=== PATIENT | male | born 1960 | race Caucasian/White ===

== ENCOUNTER 2023-06-02 16:04 | Emergency (ER) | payer OTHER, SELFPAY ==
[2023-06-02 16:08] VITALS: BP 133/96; PULSE 91; RESP 18; TEMP 36.6; O2SAT 96; BMI 40.9
--- NOTE | 2023-06-02 16:18 | XR_ITS ---
The [address] [address] Patient Name: HUAN DIAZ MRN: [id number] date: 1960 Sex: M Assigned Patient Location: ER Current Patient Location: ER Accession/Order Number: [id number] Exam Date: 06/02/2023 16:25 Report Date: 06/02/2023 17:13 At the request of: SHAILA REDDY Procedure: XR knee LT 3V EXAM: XR knee LT 3V HISTORY: pain COMPARISON: None. TECHNIQUE: 3 views of the left knee were obtained utilizing the portable unit. FINDINGS: There is no evidence of an acute fracture or dislocation. The joint spaces appear relatively intact given patient positioning. No osteochondral injury is identified. There is no evidence of a joint effusion. XR/XR knee LT 3V IMPRESSION: No acute fracture, dislocation or significant degenerative change. There is no evidence of a joint effusion. Electronically authenticated by: JORDI LEO Date: 06/02/2023 17:13
--- NOTE | 2023-06-02 16:19 | ED.LOWEXI1 ---
HPI - Extremity Injury (Lower) General Chief Complaint: Extremity Injury, Lower Stated Complaint: Lower Extremity Pain Time Seen by Provider: 06/02/23 16:10 Source: patient and family Mode of arrival: walk-in Limitations: no limitations History of Present Illness HPI Narrative: 63 year old male presents to the ED for pain to his left knee. The pain is to the superior anterior knee. Denies fever, chills, injury, weakness, N/T. States he was walking yesterday when he developed the pain. He has taken oxycodone today with some improvement. Pain increases with movement. Related Data Previous Rx's Medication Instructions Recorded hydrocodone 5 mg-acetaminophen 325 1 tab PO Q8H PRN pain #12 tabs 06/02/23 mg tablet Allergies Allergy/AdvReac Type Severity Reaction Status Date / Time No Known Drug Allergies Allergy Verified 06/02/23 16:08 Review of Systems ROS Constitutional Denies: fever or chills Cardiovascular Denies: chest pain Respiratory Denies: shortness of breath Musculoskeletal Reports: extremity pain; Denies: back pain Integumentary/Breast Denies: rash, itching or redness Neurological Denies: numbness in extremities or weakness in extremities PFSH PFSH Social History Smoking status: Never smoker Exam Constitutional Vital Signs, click to edit/add: Last Vital Signs Temp 97.8 F 06/02/23 16:08 Pulse 91 H 06/02/23 16:08 Resp 18 06/02/23 16:08 BP 133/96 H 06/02/23 16:08 Pulse Ox 96 06/02/23 16:08 O2 Del Method Room Air 06/02/23 16:08 Common normals: no apparent distress and oriented x3 General appearance: cooperative Eye Common normals: conjunctivae normal and no scleral icterus Neck & C-Spine Common normals: supple Chest Chest: symmetrical chest wall rise Respiratory Common normals: normal respiratory effort Effort & inspection: able to speak in complete sentences and symmetric chest movement Cardio Common normals: regular rate Peripheral pulses: posterior tibial pulses present and dorsalis pedis pulses present Extremity Left lower extremity: knee joint Other: No swelling, erythema, deformity, or discoloration noted to left knee. Tenderness to superior knee area. Full ROM. Course Vital Signs Vital signs: Vital Signs Temperature 97.8 F 06/02/23 16:08 Pulse Rate 91 H 06/02/23 16:08 Respiratory Rate 18 06/02/23 16:08 Blood Pressure 133/96 H 06/02/23 16:08 Pulse Oximetry 96 06/02/23 16:08 Oxygen Delivery Method Room Air 06/02/23 16:08 Temperature 97.8 F 06/02/23 16:08 Pulse Rate 91 H 06/02/23 16:08 Respiratory Rate 18 06/02/23 16:08 Blood Pressure 133/96 H 06/02/23 16:08 Pulse Oximetry 96 06/02/23 16:08 Oxygen Delivery Method Room Air 06/02/23 16:08 MDM - Extremity Injury (Lower) MDM Narrative Medical decision making narrative: X-ray findings were discussed with the patient and his family member. An marilyn wrap was applied to the left knee. The application was checked and was appropriate; the LLE remained NVI. OARRs was reviewed. A prescription was provided for norco. Follow up with an orthopedist for a recheck, further evaluation and treatment. Differential Diagnosis Differential diagnosis: Likely acute internal derangement of knee and other (Knee sprain/strain, fracture, effusion) Medical Records Attestation: I reviewed the patient's medical records. Imaging Data XR knee: Attestation: I have reviewed the pertinent imaging results. Radiologist's impression: ITS Impressions Knee X-Ray 06/02/23 16:18 IMPRESSION: No acute fracture, dislocation or significant degenerative change. There is no evidence of a joint effusion. Electronically authenticated by: JORDI LEO Date: 06/02/2023 17:13 Discharge Plan Discharge Chief Complaint: Extremity Injury, Lower Clinical Impression: Acute knee pain Patient Disposition: Home, Self-Care Time of Disposition Decision: 17:29 Condition: Good Mode of Transportation: Private Vehicle Prescriptions / Home Meds: New hydrocodone-acetaminophen 5-325 mg tablet 1 tab PO Q8H PRN (Reason: pain) Qty: 12 0RF Instructions: Knee Pain (ED) Stand Alone Forms: Portal Instructions Referrals: Bjorn Monsivais MD [Primary Care Provider] - 1 week Edis Valera MD [Physician] - 1 week Discharge Date/Time: 06/02/23 17:45
== END 2023-06-02 17:45 | disposition home or self-care (01) ==
PROVIDERS: Emergency Provider Emergency Medicine; PCP Family Medicine
DX: M25.562 Pain in left knee (principal)
CPT/HCPCS: 73562; 99283

== ENCOUNTER 2024-12-23 19:33 | Emergency (ER) | payer OTHER, SELFPAY ==
--- OUTSIDE RECORDS SUMMARY | 2024-12-23 19:39 | XMS_ITS | Clinical Summary ---
Author Organization [facility] Healthcare Address [address] [place] [address] Care Team Providers Care Client Engagement Manager Name Role Phone Unavailable Primary Care Provider Unavailabl e Social History Tobacco Use Types Packs/Day Years Used Date Smoking Tobacco: Never Assessed Sex and Gender Information Value Date Recorded Sex Assigned at Not on file Legal Sex Male 8:25 PM EDT Gender Identity Not on file Sexual Orientation Not on file Last Filed Vital Signs Vital Sign Reading Time Taken Comments Blood Pressure 146/85 05/10/2018 12:00 PM EST Pulse - - Temperature - - Respiratory Rate - - Oxygen Saturation - - Inhaled Oxygen Concentration - - Weight 138 kg (304 lb) 05/10/2018 12:00 PM EST Height 177.8 cm (5' 10 ) 05/10/2018 12:00 PM EST Body Mass Index 43.62 05/10/2018 12:00 PM EST Plan of Treatment Not on file Insurance [employer]
--- OUTSIDE RECORDS SUMMARY | 2024-12-23 19:40 | XMS_ITS | CCD ---
Author Organization [facility] Care Team Providers Care Consumer Insight Manager Name Role Phone DARIUS, DR CAVAZOS Admitting Unavailable NILL, DR CAVAZOS Attending Unavailable HOY, DR GILL Primary Care Unavailable NILL, DR CAVAZOS Consulting Unavailable CALEB, JUANIS Consulting Unavailable MORGOS, KERRY Consulting Unavailable ANTHONY, IRISH S Consulting Unavailable HOY, DR GILL Admitting Unavailable HOY, DR GILL Attending Unavailable HOY, DR GILL Primary Care Unavailable HOY, DR GILL Consulting Unavailable HOY, DR GILL Admitting Unavailable HOY, DR GILL Attending Unavailable HOY, DR GILL Primary Care Unavailable HOY, DR GILL Consulting Unavailable HOY, DR GILL Primary Care Unavailable MARKER, DR JOHNSTON Admitting Unavailable MARKER, DR JOHNSTON Attending Unavailable MARKER, DR JOHNSTON Consulting Unavailable CAREYPAOLO Consulting Unavailable NILL, DR CAVAZOS Admitting Unavailable NILL, DR CAVAZOS Attending Unavailable HOY, DR GILL Primary Care Unavailable NILL, DR CAVAZOS Consulting Unavailable GLEZ, NAYA Consulting Unavailable NILL, DR CAVAZOS Admitting Unavailable NILL, DR CAVAZOS Attending Unavailable HOY, DR GILL Primary Care Unavailable NILL, DR CAVAZOS Consulting Unavailable Hoy, Jairo Primary Care Physician Macy MONTES DE OCA Attending Unavailable Hoy PROVIDERJairo Referring Unavailabl e NILLMacy Attending Unavailable NILLMacy Attending Unavailable Hoy PROVIDERJairo Referring Unavailabl e NILLMacy Attending Unavailable Hoy PROVIDER, Jairo Referring Unavailabl e Allergies Allergy Classification Reported Allergen(s) Allergy Type Date of Onset Reaction(s) Facility (1 source) No Known Medication Allergies; Translations: [No Known Medication Allergies] Propensity to adverse reactions (disorder) [facility] Repository Medications Current Medications Medication Drug Class(es) Dates Sig (Normalized) Sig (Original) 24 hr desvenlafaxine succinate 100 mg extended release oral tablet (1 source) Serotonin and Norepinephrine Reuptake Inhibitor Start: 12-29-2021 take 1 tablet by mouth once daily Pristiq 100 mg Tab-ER 100 mg = 1 tab(s), Oral, Daily, Refills(s) 0 Start Date: 12/29/21 Status: Ordered hydrOXYzine pamoate 25 mg oral capsule (1 source) Antihistamine Start: 12-29-2021 take 1 capsule by mouth four times daily as needed for anxiety Vistaril 25 mg Cap 25 mg = 1 cap(s), Oral, QID, PRN as needed for anxiety, Refills(s) 0 Start Date: 12/29/21 Status: Ordered lisinopril 10 mg oral tablet (1 source) Angiotensin Converting Enzyme Inhibitor Start: 12-29-2021 take 1 tablet by mouth once daily lisinopril 10 mg Tab 10 mg = 1 tab(s), Oral, Daily, Refills(s) 0 Start Date: 12/29/21 Status: Ordered Problems Problem Classification Problem Date Documented Date Episodic/Chronic Abdominal pain (4 sources) Unspecified abdominal pain; Translations: [Upper abdominal pain, unspecified] Onset: 12-19-2021 Episodic Acquired foot deformities (1 source) Foot-drop 12-29-2021 Episodic Anxiety disorders (2 sources) Anxiety disorder, unspecified; Translations: [Anxiety] Onset: 02-16-2022 12-29-2021 Chronic Biliary tract disease (9 sources) Calculus of gallbladder without cholecystitis without obstruction; Translations: [Calculus of gallbladder with chronic cholecystitis without obstruction] Onset: 12-22-2021 Episodic Diabetes mellitus without complication (2 sources) Type 2 diabetes mellitus without complications; Translations: [Diabetes mellitus] Onset: 02-01-2022 12-29-2021 Chronic Disorders of lipid metabolism (3 sources) Hyperlipidemia, unspecified; Translations: [Hypertriglyceridemi a] Onset: 02-16-2022 12-29-2021 Chronic Essential hypertension (2 sources) Essential (primary) hypertension; Translations: [Hypertensive disorder] Onset: 02-16-2022 12-29-2021 Chronic Mood disorders (2 sources) Major depressive disorder, single episode, unspecified; Translations: [Depressive disorder] Onset: 02-16-2022 12-29-2021 Chronic Other aftercare (1 source) Other mcc (current) drug therapy; Translations: [OTH PRISON CURRENT DRUG THERAPY] Onset: 12-22-2021 Episodic Other nervous system disorders (1 source) Paresthesia 12-29-2021 Episodic Other nutritional; endocrine; and metabolic disorders (1 source) Obesity, unspecified; Translations: [OBESITY UNSPECIFIED] Onset: 02-16-2022 Chronic Other nutritional; endocrine; and metabolic disorders (1 source) Body mass index (BMI) 40.0-44.9, adult; Translations: [BODY MASS INDEX BMI 40.0-44.9 ADULT] Onset: 02-16-2022 Chronic Other nutritional; endocrine; and metabolic disorders (1 source) Body mass index 40+ - severely obese 01-12-2022 Chronic Other screening for suspected conditions (not mental disorders or infectious disease) (1 source) Encounter for screening for malignant neoplasm of prostate; Translations: [ENC SCREEN MALIG NEOPLASM PROSTATE] Onset: 02-09-2022 Episodic Unclassified (1 source) CONTACT W/AND (SUSP) EXPOS COVID-19; Translations: [CONTACT W/AND (SUSP) EXPOS COVID-19] Onset: 02-09-2022 Results Test Name Value Interpretation Reference Range Facility General Surgery Office/Clini c Noteon 02-18-2022 General Surgery Office/Clinic Note Chief Complaint post operative follow up HPI Staff 7 day post operative follow up post lap cholecystectomy. Denies pain, no use of pain medication. Denies bleeding or drainage. Bowels moving well. History of Present Illness 1 week s/p LS cholecystectomy, doing well; denies pain, did not take pain meds, no N/V; normal bms; eating well, no fevers, no drainage from incisions; pathology with chronic cholecystitis and large 3 cm stone. Review of Systems ROS - Provider Constitutional: no fever, no sweats, no weight loss. Eyes: no glasses, no blurred vision, no visual loss. ENMT: no dentures, no hoarseness, no swallowing difficulties, no hearing loss, no ear infection(s), no nose bleeds. Cardiovascular: normal blood pressure, no chest pain, regular heartbeat, no heart murmur. Respiratory: no shortness of breath, no cough, no asthma, no wheezing. Gastrointestinal: no nausea, no vomiting, no diarrhea, no constipation, no blood in stool, no change in bowel habits, no abdominal pain, no hepatitis. Genitourinary: no kidney stones, no urine infection, no dysuria. Musculoskeletal: no pain, no weakness. Skin: no changing moles, no rash, no skin lumps. Neurologic: no seizures, no epilepsy, no headache. Psychiatric: no emotional or psychiatric problem. Heme/Lymph: no bleeding problems, no anemia, no blood clots, no transfusions. Allergy/Immunologic: no swollen lymph nodes/glands, no IV drug abuse. Other: Additional ROS info: Except as noted in the above Review of Systems and in the History of Present Illness, all other systems have been reviewed and are negative or noncontributory. Physical Exam abd: obese, soft, incisions without erythema or drainage; resolving periumbilical ecchymosis. Assessment/Plan 1. Symptomatic cholelithiasis (K80.20: Calculus of gallbladder without cholecystitis without obstruction) doing well; continue no lifting > 10 lbs for 3 weeks; call with problems/questions. Follow-up With When Contact Information DARIUS MATTA, CHIDI Jc Only if needed [address] [place] [address]- Additional Instructions: Problem List/Past Medical History Ongoing Anxiety BMI 40.0-44.9, adult Cholelithiasis Depression Diabetes HTN (hypertension) Hypertriglyceridemia Paresthesia Pure hypercholesterolemia Right foot drop Symptomatic cholelithiasis Historical No qualifying data Procedure/Surgical History Decompression of lumbar spine. Medications lisinopril 10 mg Tab, 10 mg= 1 tab(s), Oral, Daily Pristiq 100 mg Tab-ER, 100 mg= 1 tab(s), Oral, Daily Vistaril 25 mg Cap, 25 mg= 1 cap(s), Oral, QID, PRN Allergies No Known Allergies No Known Medication Allergies Social History Alcohol - Denies Alcohol Use, 01/06/2022 Substance Abuse - Denies Substance Abuse, 01/06/2022 Tobacco Never (less than 100 in lifetime) Tobacco Use:. Never Smokeless Tobacco Use:., 01/06/2022 Family History Diabetes mellitus type 2: Father. Esophageal cancer: Sister. Heart disease: Mother. Hypertension: Mother. Primary malignant neoplasm of colon: Brother. Primary malignant neoplasm of prostate: Father. Immunizations Vaccine Date Status Comments influenza virus vaccine, inactivated - Not Given Patient Refuses Normal [facility] Comment on above: Result Comment: Elec tronically Signed By: DARIUS MATTA, Macy Jeffery\Date and Time Signed: 02/18/22 15:24 EST Pathology Noteon 02-16-2022 Pathology Note [id number]: 127 Normal [facility] Operative Reporton Operative Report [id number]: 127 Normal [facility] Lab Reportson 02-06-2022 Lab Reports [id number]: 127 Normal [facility]on 01-11 SARS-CoV-2 (COVID-19) RNA RONALD+probe Ql (Unsp spec) Not detected Normal NOT DETECTED [facility] Comment on above: Result Comment: This test is not yet approved or cleared by the [place] FDA. When there are no FDA-approved or cleared tests available, and other criteria are met, FDA can make tests available under an emergency access mechanism called an Emergency Use Authorization (EUA). The EUA for this test is supported by the Viper of Health and Human Service's (HHS's) declaration that circumstances exist to justify the emergency use of in vitro diagnostics for the detection and/or diagnosis of the virus that causes COVID-19. This EUA will remain in effect (meaning this test can be used) for the duration of the COVID-19 declaration justifying emergency of IVDs, unless it is terminated or revoked by FDA (after which the test may no longer be used). When diagnostic testing is negative, the possibility of a false negative should be considered in the context of a patient's recent exposures and the presence of clinical signs and symptoms consistent with SARS-CoV-2. Performed By: #### C VDTB #### [facility] [address] [place] [address] Dr. Chinedu Vitale GLYCOHEMOGLOBIN A1Con 2021 ADA RECOMMENDATION SEE BELOW Normal [facility] Comment on above: Result Comment: ADA RECOMMENDED LIMIT 4.0 - 6.0 ADA THERAPEUTIC TARGET < 7.0 ACTION SUGGESTED > 7.0 Performed By: #### A 1C #### [facility] [address] [place] [address] Dr. Chinedu Vitale Glucose [Mass/Vol] 126 mg/dL Normal [facility] Comment on above: Performed By: #### A 1C #### [facility] [address] [address] [address] Chinedu Vitale HbA1c (Bld) [Mass fraction] 6.0 % Normal 4.5-6.2 [facility] Comment on above: Performed By: #### A 1C #### [facility] [address] [place] [address] Dr. Chinedu Vitale Lab Reportson 2022 Lab Reports [id number]: 127 Normal [facility] PROF CHEM 8 (BAS METB)on Anion gap [Moles/Vol] 10.1 mmol/L Normal [facility] Comment on above: Performed By: #### B MP #### [facility] [address] [place] [address] Dr. Chinedu Vitale Calcium [Mass/Vol] 9.1 mg/dL Normal 8.5-10.1 [facility] Comment on above: Performed By: #### B MP #### [facility] [address] [place] [address] Dr. Chinedu Vitale Chloride [Moles/Vol] 104 mmol/L Normal 98-107 [facility] Comment on above: Performed By: #### B MP #### [facility] [address] [place] [address] Dr. Chinedu Vitale CO2 [Moles/Vol] 28.2 mmol/L Normal 21.0-32.0 [facility] Comment on above: Performed By: #### B MP #### [facility] [address] [place] [address] Dr. Chinedu Vitale Creatinine [Mass/Vol] 1.08 mg/dL Normal 0.70-1.30 [facility] Comment on above: Performed By: #### B MP #### [facility] [address] [address] [address] Chinedu Vitale EGFR-AF [place] CITIZ[place] >60 Normal >=60 [facility] Comment on above: Performed By: #### B MP #### [facility] [address] [id number] [address] Chinedu Vitale EGFR-NON AF [place] CITIZ[place] >60 Normal >=60 [facility] Comment on above: Performed By: #### B MP #### [facility] [address] [address] [address] Chinedu Vitale Glucose [Mass/Vol] 105 mg/dL Normal 74-106 [facility] Comment on above: Performed By: #### B MP #### [facility] [address] [address] [address] Chinedu Vitale Potassium [Moles/Vol] 4.3 mmol/L Normal 3.5-5.1 [facility] Comment on above: Performed By: #### B MP #### [facility] [address] [address] [address] Chinedu Vitale Sodium [Moles/Vol] 138 mmol/L Normal 136-145 [facility] Comment on above: Performed By: #### B MP #### [facility] [address] [address] [address] Chinedu Vitale Urea nitrogen [Mass/Vol] 17.0 mg/dL Normal 7.0-18.0 [facility] Comment on above: Performed By: #### B MP #### [facility] [address] [address] [address] Chinedu Vitale Urea nitrogen/Creatinine [Mass ratio] 15.7 mg/mg Normal [facility] Comment on above: Performed By: #### B MP #### [facility] [address] [address] [address] Chinedu Vitale Consent for Procedure/Surger yon 01-07-2022 Consent for Procedure/Surgery [id number]: 127 Normal [facility] Ambulatory Visit Summaryon 0 01-06-2022 Ambulatory Visit Summary HUAN DIAZ :1960 Visit Date:01/06/2022 Ambulatory Visit Instructions Your Care Team Attending Physician - DARIUS MATTA, Macy Murguia Primary Care Physician - Jairo Geronimo MD This Is Your Medications List Contact prescribing physician if questions or concerns desvenlafaxine (Pristiq 100 mg Tab-ER) hydrOXYzine (Vistaril 25 mg Cap) lisinopril (lisinopril 10 mg Tab) Procedures Performed Decompression of lumbar spine. Discharge Vitals Heart Rate (Peripheral) 80 Respiratory Rate 16 Blood Pressure 130/88 Height 167.64 cm Height 66 in Weight 125 kg Weight 275 lb BMI 44.48 Medications What How Much When Instructions Unchanged desvenlafaxine (Pristiq 100 mg Tab-ER) 1 Tablets By Mouth Every day Contact prescribing physician if questions or concerns Unchanged hydrOXYzine (Vistaril 25 mg Cap) 1 Capsules By Mouth 4 times a day as needed for as needed for anxiety Contact prescribing physician if questions or concerns Unchanged lisinopril (lisinopril 10 mg Tab) 1 Tablets By Mouth Every day Contact prescribing physician if questions or concerns Medications and Immunizations Administered Not Given influenza virus vaccine, inactivated, Patient Refuses Allergies No Known Allergies No Known Medication Allergies Problems Ongoing - Any problem that you are currently receiving treatment for. Anxiety Cholelithiasis Depression Diabetes HTN (hypertension) Hypertriglyceridemia Paresthesia Pure hypercholesterolemia Right foot drop Normal [facility] RAD - CT Reporton 12-25-2021 RAD - CT Report [id number]: 127 Normal [facility] ED Note-Physicianon 12-24-19 22 ED Note-Physician [id number]: 127 Normal [facility] Physician Referralon 022 Physician Referral [id number]: 127 Normal [facility] CBC AUTO DIFFon 12-19-2021 BASO # 0.1 103/ul Normal 0.0-0.1 [facility] Comment on above: Performed By: #### C BC ####[facility] [address] [id number]. Chinedu Vitale Basophils/100 WBC (Bld) 0.5 % Normal 0.2-2.0 [facility] Comment on above: Performed By: #### C BC ####[facility] [address] [id number]. Chinedu Vitale EO # 0.5 103/ul Normal 0.0-0.7 [facility] Comment on above: Performed By: #### C BC ####[facility] [address] [place], [place] [id number]. Chinedu Vitale Eosinophils/100 WBC (Bld) 4.1 % Normal 0.9-7.0 [facility] Comment on above: Performed By: #### C BC ####[facility] [address] [place], [place] [address]Dr. Chinedu Vitale Erythrocyte distribution width (RBC) [Ratio] 14.4 % Normal 11.0-15.0 [facility] Comment on above: Performed By: #### C BC ####[facility] [address] [place], [place] [address]Dr. Chinedu Vitale Hematocrit (Bld) [Volume fraction] 46.9 % Normal 42.0-54.0 [facility] Comment on above: Performed By: #### C BC ####[facility] [address] [place], [place] [id number]. Chinedu Vitale Hemoglobin (Bld) [Mass/Vol] 15.2 g/dL Normal 14.0-18.0 [facility] Comment on above: Performed By: #### C BC ####[facility] [address] [place], [place] [address]Dr. Chinedu Vitale IG # 0.04 10e3/ul Critically high 0.00-0.03 [facility] Comment on above: Performed By: #### C BC ####[facility] [address] [place], [place] [id number]. Chinedu Vitale IG % 0.4 % Normal 0.0-0.5 [facility] Comment on above: Performed By: #### C BC ####[facility] [address] [id number]. Chinedu Vitale LYMPH # 3.5 103/ul Normal 1.2-3.8 [facility] Comment on above: Performed By: #### C BC ####[facility] [address] [id number]. Chinedu Vitale Lymphocytes/100 WBC (Bld) 31.6 % Normal 20.5-60.0 [facility] Comment on above: Performed By: #### C BC ####[facility] [address] [id number]. Chinedu Vitale MANUAL DIFF REQ NO Normal [facility] [place] Comment on above: Performed By: #### C BC ####[facility] [address] [id number]. Chinedu Vitale MCH (RBC) [Entitic mass] 28.6 pg Normal 25.9-34.0 [facility] Comment on above: Performed By: #### C BC ####[facility] [address] [id number]. Antonettemoncho Vitale MCHC (RBC) [Mass/Vol] 32.4 g/dL Normal 29.9-35.2 [facility] Comment on above: Performed By: #### C BC ####[facility] [address] [id number] Vitale MCV (RBC) [Entitic vol] 88.3 fL Normal 80.0-94.0 [facility] Comment on above: Performed By: #### C BC ####[facility] [address] [id number] Vitale MONO # 0.9 103/ul Critically high 0.3-0.8 [facility] [place] Comment on above: Performed By: #### C BC ####[facility] [address] [id number] Vitale Monocytes/100 WBC (Bld) 7.9 % Normal 1.7-12.0 [facility] Comment on above: Performed By: #### C BC ####[facility] [address] [id number]. Chinedu Vitale NEUT # 6.2 103/ul Normal 1.4-6.5 [facility] Comment on above: Performed By: #### C BC ####[facility] [address] [id number]. Chinedu Vitale Neutrophils/100 WBC (Bld) 55.5 % Normal 43.0-75.0 [facility] Comment on above: Performed By: #### C BC ####[facility] [address] [address]Dr. Chinedu Vitale Platelet mean volume (Bld) [Entitic vol] 11.6 fL Normal 9.5-13.5 [facility] Comment on above: Performed By: #### C BC ####[facility] [address] [address]Dr. Chinedu Vitale PLT 241 103/ul Normal 150-450 [facility] Comment on above: Performed By: #### C BC ####[facility] [address] [id number]. Chinedu Vitale RBC 5.31 106/ul Normal 4.70-6.10 [facility] Comment on above: Performed By: #### C BC ####[facility] [address] [id number]. Chinedu Vitale WBC 11.1 103/ul Critically high 4.0-11.0 [facility] Comment on above: Performed By: #### C BC ####[facility] [address] [id number]. Chinedu Vitale CT ABD/PELVIS WO CONon 12-19 CT ABD/PELVIS WO CON CT ABD/PELVIS WO CO N: 12/19/2021 12:14 AM EDT CLINICAL HISTORY: 61 years old Male with UNSPECIFIED ABDOMINAL PAIN. Epigastric pain with nausea. TECHNIQUE: Axial CT images through the abdomen and pelvis are obtained without the intravenous administration of contrast. Coronal and sagittal reformations are also obtained. Dose reduction techniques were achieved by using automated exposure control and/or adjustment of mA and/or kV according to patient size and/or use of iterative reconstruction technique. COMPARISON: None available. FINDINGS: The lung bases are clear with no dependent infiltrate or effusion. Without the use of IV or oral contrast the study is limited by incomplete evaluation of the blood vessels, solid visceral organs and bowel. The liver, spleen, pancreas and bilateral adrenal glands are unremarkable. Large cholelith at the gallbladder neck measures 2.0 cm with the gallbladder is distended at 4.5 x 3.4 cm without surrounding inflammatory change. No intrahepatic or extrahepatic biliary ductal dilatation. The bilateral kidneys are unremarkable with no renal calculi or hydronephrosis. The bilateral ureters demonstrate no gross abnormality or obstruction. The stomach and small bowel are unremarkable. The appendix is less well inflammatory change. The colon is unremarkable. Bilateral fat-containing inguinal hernias are present. The bladder appears unremarkable. There is no evidence of aortic aneurysm. No enlarged lymph nodes are seen. No free air or free fluid is seen. The prostate gland is within normal limits. Remote right lateral rib fracture deformity with callus formation and nonunion. Posterior disc osteophyte L4-L5. No acute compression fracture deformity or suspicious osseous abnormality. IMPRESSION: Large cholelith at the gallbladder neck with distended gallbladder without surrounding definitive inflammatory change. Right upper quadrant ultrasound may be of added benefit. Electronically authenticated by: PAOLO PATINO Date: 2021-12-19 01:47 Normal [facility] LIPASEon 12-19-2021 Lipase [Catalytic activity/Vol] 127.0 U/L Normal 73.0-393.0 [facility] Comment on above: Performed By: #### L IPA, CMP, HSTROPN #### [facility] [address] [place], [place] [address] Dr. Chinedu Vitale PROF 14(COMP METB)on 022 Albumin [Mass/Vol] 3.9 g/dL Normal 3.4-5.0 [facility] Comment on above: Performed By: #### L IPA, CMP, HSTROPN #### [facility] [address] [place], [place] [address] Dr. Chinedu Vitale Albumin/Globulin [Mass ratio] 1.2 {ratio} Normal [facility] Comment on above: Performed By: #### L IPA, CMP, HSTROPN #### [facility] [address] [address] [address] Chinedu Vitale ALP [Catalytic activity/Vol] 89 U/L Normal 46-116 [facility] Comment on above: Performed By: #### L IPA, CMP, HSTROPN #### [facility] [address] [address] [address] Chinedu Vitale ALT [Catalytic activity/Vol] 21 U/L Normal 16-63 [facility] Comment on above: Performed By: #### L IPA, CMP, HSTROPN #### [facility] [address] [address] [address] Chinedu Vitale Anion gap [Moles/Vol] 9.7 mmol/L Normal [facility] Comment on above: Performed By: #### L IPA, CMP, HSTROPN #### [facility] [address] [place] [address] Dr. Chinedu Vitale AST [Catalytic activity/Vol] 13 U/L Critically low 15-37 [facility] Comment on above: Performed By: #### L IPA, CMP, HSTROPN #### [facility] [address] [place] [address] Dr. Chinedu Vitale Bilirubin [Mass/Vol] 0.3 mg/dL Normal 0.2-1.0 [facility] Comment on above: Performed By: #### L IPA, CMP, HSTROPN #### [facility] [address] [address] [address] Chinedu Vitale Calcium [Mass/Vol] 8.8 mg/dL Normal 8.5-10.1 [facility] Comment on above: Performed By: #### L IPA, CMP, HSTROPN #### [facility] [address] [place] [address] Dr. Chinedu Vitale Chloride [Moles/Vol] 104 mmol/L Normal 98-107 [facility] Comment on above: Performed By: #### L IPA, CMP, HSTROPN #### [facility] [address] [place], [place] [id number] Dr. Chinedu Vitale CO2 [Moles/Vol] 26.4 mmol/L Normal 21.0-32.0 [facility] Comment on above: Performed By: #### L IPA, CMP, HSTROPN #### [facility] [address] [address] [address] Chinedu Vitale Creatinine [Mass/Vol] 1.12 mg/dL Normal 0.70-1.30 [facility] Comment on above: Performed By: #### L IPA, CMP, HSTROPN #### [facility] [address] [address] [address] Chinedu Vitale EGFR-AF [place] CITIZ[place] >60 Normal >=60 [facility] Comment on above: Performed By: #### L IPA, CMP, HSTROPN #### [facility] [address] [place] [address] Dr. Chinedu Vitale EGFR-NON AF [place] CITIZEN >60 Normal >=60 [facility] Comment on above: Performed By: #### L IPA, CMP, HSTROPN #### [facility] [address] [address] [address] Chinedu Vitale Globulin (S) [Mass/Vol] 3.3 g/dL Normal [facility] Comment on above: Performed By: #### L IPA, CMP, HSTROPN #### [facility] [address] [place] [address] Dr. Chinedu Vitale Glucose [Mass/Vol] 144 mg/dL Critically high 74-106 [facility] Comment on above: Performed By: #### L IPA, CMP, HSTROPN #### [facility] [address] [address] [address] Chinedu Vitale Potassium [Moles/Vol] 4.1 mmol/L Normal 3.5-5.1 [facility] Comment on above: Performed By: #### L IPA, CMP, HSTROPN #### [facility] [address] [place] [address] Dr. Chinedu Vitale Protein [Mass/Vol] 7.2 g/dL Normal 6.4-8.2 [facility] Comment on above: Performed By: #### L IPA, CMP, HSTROPN #### [facility] [address] [address] [address] Chinedu Vitale Sodium [Moles/Vol] 136 mmol/L Normal 136-145 [facility] Comment on above: Performed By: #### L IPA, CMP, HSTROPN #### [facility] [address] [address] [address] Chinedu Vitale Urea nitrogen [Mass/Vol] 19.0 mg/dL Critically high 7.0-18.0 [facility] Comment on above: Performed By: #### L IPA, CMP, HSTROPN #### [facility] [address] [address] [address] Chinedu Vitale Urea nitrogen/Creatinine [Mass ratio] 17.0 mg/mg Normal [facility] Comment on above: Performed By: #### L IPA, CMP, HSTROPN #### [facility] [address] [address] [address] Chinedu Vitale TROPONIN, HIGH SENSITIVITYon 12-19-2021 HSTROP 7.1 pg/mL Normal 4.0-76.1 [facility] Comment on above: Result Comment: CUT- OFF POINTS HAVE BEEN ESTABLISHED BASED ON THE FOURTH UNIVERSAL DEFINITIONS OF MYOCARDIAL INFARCTION. THE UPPER REFERENCE LIMIT (URL) OF TROPONIN, DEFINED THE 99TH PERCENTILE OF cTnI DISTRIBUTION IN A REFERENCE POPULATION, HAS BEEN CONFIRMED THE DECISION THRESHOLD FOR SD DIAGNOSIS. Performed By: #### L IPA, CMP, HSTROPN #### [facility] [address] [address] [address] Chinedu Vitale [facility] CBC AUTO DIFFon 11-27-2021 BASO # 0.1 103/ul Normal 0.0-0.1 [facility] Comment on above: Performed By: #### H FPFCBC ####[facility] [address] [address]Dr. Chinedu Vitale Basophils/100 WBC (Bld) 0.6 % Normal 0.2-2.0 [facility] Comment on above: Performed By: #### H FPFCBC ####[facility] [address] [address]Dr. Chinedu Vitale EO # 0.4 103/ul Normal 0.0-0.7 [facility] Comment on above: Performed By: #### H FPFCBC ####[facility] [address] [place], [place] [address]Dr. Chinedu Vitale Eosinophils/100 WBC (Bld) 3.9 % Normal 0.9-7.0 [facility] Comment on above: Performed By: #### H FPFCBC ####[facility] [address] [place], [place] [address]Dr. Chinedu Vitale Erythrocyte distribution width (RBC) [Ratio] 14.0 % Normal 11.0-15.0 [facility] Comment on above: Performed By: #### H FPFCBC ####[facility] [address] [place], [place] [address]Dr. Chinedu Vitale Hematocrit (Bld) [Volume fraction] 49.6 % Normal 42.0-54.0 [facility] Comment on above: Performed By: #### H FPFCBC ####[facility] [address] [place], [place] [address]Dr. Chinedu Vitale Hemoglobin (Bld) [Mass/Vol] 15.6 g/dL Normal 14.0-18.0 [facility] Comment on above: Performed By: #### H FPFCBC ####[facility] [address] [place], [place] [address]Dr. Chinedu Vitale IG # 0.02 10e3/ul Normal 0.00-0.03 [facility] Comment on above: Performed By: #### H FPFCBC ####[facility] [address] [place], [place] [address]Dr. Chinedu Vitale IG % 0.2 % Normal 0.0-0.5 [facility] Comment on above: Performed By: #### H FPFCBC ####[facility] [address] [place], [place] [address]Dr. Chinedu Vitale LYMPH # 2.8 103/ul Normal 1.2-3.8 [facility] Comment on above: Performed By: #### H FPFCBC ####[facility] [address] [address]Dr. Antonettemoncho Vitale Lymphocytes/100 WBC (Bld) 30.3 % Normal 20.5-60.0 [facility] Comment on above: Performed By: #### H FPFCBC ####[facility] [address] [address]Dr. Chinedu Vitale MCH (RBC) [Entitic mass] 27.8 pg Normal 25.9-34.0 [facility] Comment on above: Performed By: #### H FPFCBC ####[facility] [address] [place], [place] [address]Dr. Chinedu Vitale MCHC (RBC) [Mass/Vol] 31.5 g/dL Normal 29.9-35.2 [facility] Comment on above: Performed By: #### H FPFCBC ####[facility] [address] [place], [place] [address]Dr. Chinedu Vitale MCV (RBC) [Entitic vol] 88.3 fL Normal 80.0-94.0 [facility] Comment on above: Performed By: #### H FPFCBC ####[facility] [address] [place], [place] [address]Dr. Chinedu Vitale MONO # 0.7 103/ul Normal 0.3-0.8 [facility] Comment on above: Performed By: #### H FPFCBC ####[facility] [address] [place], [place] [address]Dr. Chinedu Vitale Monocytes/100 WBC (Bld) 7.2 % Normal 1.7-12.0 [facility] Comment on above: Performed By: #### H FPFCBC ####[facility] [address] [place], [place] [address]DrBarb Vitale NEUT # 5.3 103/ul Normal 1.4-6.5 [facility] Comment on above: Performed By: #### H FPFCBC ####[facility] [address] [place], [place] [address]DrBarb Vitale Neutrophils/100 WBC (Bld) 57.8 % Normal 43.0-75.0 [facility] Comment on above: Performed By: #### H FPFCBC ####[facility] [address] [id number] Chinedu Vitale Platelet mean volume (Bld) [Entitic vol] 11.4 fL Normal 9.5-13.5 [facility] Comment on above: Performed By: #### H FPFCBC ####[facility] [address] [id number]. Chinedu Vitale PLT 261 103/ul Normal 150-450 [facility] Comment on above: Performed By: #### H FPFCBC ####[facility] [address] [address]DrBarb Vitale RBC 5.62 106/ul Normal 4.70-6.10 [facility] Comment on above: Performed By: #### H FPFCBC ####[facility] [address] [address]DrBarb Vitale WBC 9.1 103/ul Normal 4.0-11.0 [facility] Comment on above: Performed By: #### H FPFCBC ####[facility] [address] [address]DrBarb Vitale [employer] (M[employer])on 11-27-2021 Albumin [Mass/Vol] 4.1 g/dL Normal 3.4-5.0 [facility] Comment on above: Performed By: #### H FPFM #### [facility] [address] [address] [address] Chinedu Vitale Albumin/Globulin [Mass ratio] 1.2 {ratio} Normal [facility] Comment on above: Performed By: #### H FPFM #### [facility] [address] [address] [address] Chinedu Vitale ALP [Catalytic activity/Vol] 89 U/L Normal 46-116 [facility] Comment on above: Performed By: #### H FPFM #### [facility] [address] [address] [address] Chinedu Vitale ALT [Catalytic activity/Vol] 22 U/L Normal 16-63 [facility] Comment on above: Performed By: #### H FPFM #### [facility] [address] [address] [address] Chinedu Vitale AST [Catalytic activity/Vol] 15 U/L Normal 15-37 [facility] Comment on above: Performed By: #### H FPFM #### [facility] [address] [address] [address] Chinedu Vitale Bilirubin [Mass/Vol] 0.5 mg/dL Normal 0.2-1.0 [facility] Comment on above: Performed By: #### H FPFM #### [facility] [address] [place] [address] Dr. Chinedu Vitale Calcium [Mass/Vol] 9.1 mg/dL Normal 8.5-10.1 [facility] Comment on above: Performed By: #### H FPFM #### [facility] [address] [place] [address] Dr. Chinedu Vitale Chloride [Moles/Vol] 102 mmol/L Normal 98-107 [facility] Comment on above: Performed By: #### H FPFM #### [facility] [address] [place] [address] Dr. Chinedu Vitale CHOL-HDL RATIO NORM SEE BELOW Normal [facility] Comment on above: Result Comment: 3.3 - 4.4 LOW RISK 4.4 - 7.1 AVERAGE RISK 7.1 - 11.0 MODERATE RISK >11.0 HIGH RISK Performed By: #### H FPFM #### [facility] [address] [place] [address] Dr. Chinedu Vitale Cholesterol [Mass/Vol] 208 mg/dL Critically high <=200 [facility] Comment on above: Performed By: #### H FPFM #### [facility] [address] [place] [address] Dr. Chinedu Vitale Cholesterol in HDL [Mass/Vol] 41 mg/dL Normal 40-60 [facility] Comment on above: Performed By: #### H FPFM #### [facility] [address] [address] [address] Chinedu Vitale Cholesterol in LDL [Mass/Vol] 136.4 mg/dL Normal [facility] Comment on above: Performed By: #### H FPFM #### [facility] [address] [address] [address] Chinedu Vitale Cholesterol.total/Ch olesterol in HDL [Mass ratio] 5.1 {ratio} Normal [facility] Comment on above: Performed By: #### H FPFM #### [facility] [address] [address] [address] Chinedu Vitale CO2 [Moles/Vol] 29.8 mmol/L Normal 21.0-32.0 [facility] Comment on above: Performed By: #### H FPFM #### [facility] [address] [address] [address] Chinedu Vitale Creatinine [Mass/Vol] 1.21 mg/dL Normal 0.70-1.30 [facility] Comment on above: Performed By: #### H FPFM #### [facility] [address] [address] [address] Chinedu Vitale Globulin (S) [Mass/Vol] 3.5 g/dL Normal [facility] Comment on above: Performed By: #### H FPFM #### [facility] [address] [address] [address] Chinedu Vitale Glucose [Mass/Vol] 100 mg/dL Normal 74-106 [facility] Comment on above: Performed By: #### H FPFM #### [facility] [address] [address] [address] Chinedu Vitale HDL NORMAL > or = 60 mg/dl - LO W CARDIOVASCULAR RISK <40 mg/dl - HIGH CARDIOVASCULAR RISK Normal [facility] Comment on above: Performed By: #### H FPFM #### [facility] [address] [address] [address] Chinedu Vitale LDL CALC NORMAL SEE BELOW Normal [facility] Comment on above: Result Comment: <100 mg/dl OPTIMAL 100 - 129 mg/dl NEAR OR ABOVE OPTIMAL 130 - 159 mg/dl BORDERLINE HIGH 160 - 189 mg/dl HIGH >190 mg/dl VERY HIGH Performed By: #### H FPFM #### [facility] [address] [address] [address] Chinedu Vitale Potassium [Moles/Vol] 4.4 mmol/L Normal 3.5-5.1 [facility] Comment on above: Performed By: #### H FPFM #### [facility] [address] [address] [address] Chinedu Vitale Protein [Mass/Vol] 7.6 g/dL Normal 6.4-8.2 [facility] Comment on above: Performed By: #### H FPFM #### [facility] [address] [place] [address] Dr. Chinedu Vitale Sodium [Moles/Vol] 139 mmol/L Normal 136-145 [facility] Comment on above: Performed By: #### H FPFM #### [facility] [address] [place] [address] Dr. Chinedu Vitale Triglyceride [Mass/Vol] 153 mg/dL Critically high <=150 [facility] Comment on above: Performed By: #### H FPFM #### [facility] [address] [place] [address] Dr. Chinedu Vitale TSH 2.694 uIU/mL Normal 0.358-3.740 [facility] Comment on above: Performed By: #### H FPFM #### [facility] [address] [address] [address] Chinedu Vitale Urea nitrogen [Mass/Vol] 20.0 mg/dL Critically high 7.0-18.0 [facility] Comment on above: Performed By: #### H FPFM #### [facility] [address] [place] [address] Dr. Chinedu Vitale Urea nitrogen/Creatinine [Mass ratio] 16.5 mg/mg Normal [facility] Comment on above: Performed By: #### H FPFM #### [facility] [address] [address] [address] Chinedu Vitale VLDL CALC 30.6 mg/dL Normal [facility] Comment on above: Performed By: #### H [facility] #### [facility] [address] [address] [address] Chinedu Vitale Encounters Encounter Date Encounter Type Care Provider Facility Start: 02-18-2022 End: 02-19-2022 ambulatory Macy MONTES DE OCA Facility:[facility] Start: 02-18-2022 End: 02-18-2022 Patient encounter procedure Macy MONTES DE OCA [facility] [place] Start: 02-11-2022 End: 02-12-[address] MACY MONTES DE OCA Facility:[facility] Start: 02-09-2022 Encounter for genera l adult medical examination without abnormal findings DR JAIRO GERONIMO [facility] Start: 02-09-2022 Encounter for preprocedural laboratory examination DR JAIRO GERONIMO [facility] Start: 02-08-2022 Encounter for preprocedural laboratory examination DR MACY MONTES DE OCA [facility] Start: 02-05-2022 End: 02-06-2022 Encounter for general adult medical examination without abnormal findings DR JAIRO GERONIMO Facility:[facility] Start: 02-05-2022 End: 02-06-[address] JAIRO GERONIMO Facility:[facility] Start: 02-05-2022 End: 02-06-2022 Encounter for preprocedural laboratory examination DR MACY MONTES DE OCA Facility:[facility] Start: 01-28-2022 End: [address] MACY MONTES DE OCA Facility:[facility] Start: 01-06-2022 End: 01-07-2022 ambulatory Macy MONTES DE OCA Facility:[facility] Start: 12-22-2021 ambulatory Macy MONTES DE OCA Facility :[facility] Start: 12-19-2021 End: 12-19-[address] JAIRO GERONIMO Facility:[facility] Start: 11-27-2021 End: 11-28-[address] JAIRO GERONIMO Facility:[facility] Procedures Date Procedure Procedure Detail Performing Clinician Start: 02-05-[address] MARY BETH MONTES DE OCA Comment on above: Performed By: #### P [facility] #### [facility] [id number] Chinedu Vitale Start: 11-27-[address] MARY BETH MONTES DE OCA Comment on above: Performed By: #### [facility] #### [facility] [address] [place], [place] [address] Dr. Chinedu Vitale Decompression of [facility] spine Macy MONTES DE OCA Immunizations Immunization Date Immunization Notes Care Provider Fa cility NEGATED: Highlighted row has not occurred!01-06-2022 influenza virus vaccine, unspecified formulation Macy MONTES DE OCA [facility] [place] Payers Date Payer Category Payer Unknown [id number] 2.16.84 [id number] 1960 Unknown [id number] 2.16.84 [id number] 1961 Unknown [id number] 2.16.84 [id number] 1961 Unknown [id number] 2.16.84 [id number] 1961 Unknown [id number] 2.16.84 [id number] 1961 Unknown [id number] 2.16.8 [id number] 1961 Unknown [id number] 2.16.8 [id number] 1961 Unknown [id number] 2.16.8 [id number] 1961 Unknown [id number] 2.16.8 [id number] 1958 Self-pay [id number] 1958 Unknown [id number] Unknown [id number] 2.16.84 [id number] Social History Date Type Detail Facility Start: 01-06-2022 Tobacco smoking status Never s moked tobacco (finding) [facility] [place] Tobacco smoking status Never Gener al [facility] [place] Sex Assigned At Male [facility] Discharge instructions 02-12-2022 Note Date & Type Note Facility 02-12-2022 Hospital Discharg e instructions Follow Up Care 02/12/2022 09:22:18 With:DARIUS MATTA, CHIDI Jc Address: [address] [place] [address] When: only if needed [facility] [place] Clinical Note 02-11-2022 Note Date & Type Note Facility 02-11-2022 Note OPERATIVE NOTE OPERATION DATE: 02/11/2022 PREOPERATIVE DIAGNOSIS: Symptomatic cholelithiasis. POSTOPERATIVE DIAGNOSIS: Symptomatic cholelithiasis with chronic cholecystitis. PROCEDURE: Laparoscopic cholecystectomy. SURGEON: Macy Montes De Oca M.D. ANESTHESIA: General endotracheal. ESTIMATED BLOOD LOSS: Less than 20 mL. INDICATIONS AND CONSENT: Patient is a 62-year-old male with a history of biliary colic type symptoms. He had a severe episode requiring ER evaluation. He was found to have a large, 2 cm stone in the neck of the gallbladder, normal laboratory evaluation. Indications, risks, benefits, alternatives of proceeding with laparoscopic cholecystectomy were explained extensively to the patient, including risks of bleeding, infection, bile duct injury, bowel injury, need for intraoperative cholangiogram, postoperative ERCP, open procedure, blood clot, pulmonary embolus, heart attack, anesthetic complications, need for further surgery. All of his questions were answered. Informed consent was obtained. PROCEDURE: Patient was brought to the operating room, placed in the supine position. General anesthesia was induced. He was prepped and draped in the usual sterile fashion. A supraumbilical incision was made in the midline and carried down through subcutaneous tissue using blunt dissection. The fascia was grasped and incised. Two 0 Vicryl stay sutures placed in either side of the midline fascia. The Muniz trocar was then inserted and secured using the stay sutures. The abdomen was then insufflated with carbon dioxide to a pressure of 15 mm/Hg. The scope was then inserted. The abdomen was visualized. The patient was placed in reverse Trendelenburg position with the right side up. Three 5 mm ports were then placed; one in the subxiphoid area, two in the right subcostal area, all under direct visualization. Patient had some fatty changes to the liver, as well as a large, fatty omentum. The fundus of the gallbladder was grasped with atraumatic grasper, retracted cephalad and to the patient's right. There was minimal mobility of the liver and gallbladder. The infundibulum was then grasped and retracted laterally and inferiorly. Dissection was begun just below the infundibulum, where the cystic duct and cystic artery and the lower portion of the infundibulum were carefully freed up from the liver plate. Critical view safety was obtained with the cystic duct of normal caliber and cystic artery of normal caliber being seen as the only structures entering into the gallbladder. The duct was then clipped with the Hem-O-Juanjo clip proximally and regular clip proximally and then one distally towards the gallbladder. This was then divided. The cystic artery, once again, was noted to be of normal caliber. It was clipped with Hem-O-Juanjo clips; two proximally and one distally towards the gallbladder and then divided. The gallbladder was then taken down from the liver bed using electrocautery. Small vessels were controlled with regular clips. There were some chronic inflammatory changes in the liver bed. Once the gallbladder was completely removed, it was noted to be partially intrahepatic in the upper portion. It was brought out through the umbilical port site in an Endocatch bag. The fascia and the skin had to be enlarged in order to accommodate the large stone. Once this was removed, the upper abdomen was then copiously irrigated with saline until clear. The liver bed was inspected. There was minimal oozing. No evidence of bile leak. All port sites were examined upon withdrawal of the ports and there was noted to be good hemostasis. The umbilical port site fascia was then closed with 0 Vicryl figure of eight suture. All port sites infiltrated with 0.5% Marcaine. The skin was then closed with interrupted 4-0 subcuticular Monocryl sutures and skin glue. Sterile pressure dressings were applied. Sponge and needle counts were correct x2 per nursing personnel. Patient tolerated procedure well, was extubated and sent to recovery room in good condition. CC: Jairo Geronimo M.D. [facility] Clinical Note 01-12-2022 Note Date & Type Note Facility 01-12-2022 Note Chief Complaint consultation for cholelithiasis HPI Staff 61 year old male presents on consultation from Dr. Geronimo for cholelithiasis. Presented to [place] ED 12/18 with epigastric pain and nausea. Pain radiated to sternum. Denies vomiting, heartburn, indigestion, belching or bloating. Denies bowel changes. He never experienced this before and has not had further pain since ED evaluation. CT ABD/pelvis with cholelithiasis. History of Present Illness 61 yo htn, hypercholesterolemia, anxiety, referred for abd pain/cholelithiasis; patient in ED 12/18/21 with upper abd pain and nausea, severe pain radiating around upper abd and into chest; no emesis; lasted several hours; occurred after a fatty meal; work up revealed 2 cm stone in neck of gallbladder, no inflammation; normal lfts; no h/o previous episodes; no pain since ED visit; no h/o jaundice or acholic stools; no previous abdominal operations; no asa or NSAID use; no tobacco use; fmhx of colon cancer in patient's brother, esophageal cancer in patient's sister; no fmhx of IBD. Review of Systems PHQ Score Initial Depression Screen Score: 0 ROS - Provider Constitutional: no fever, no sweats, no weight loss. Eyes: no glasses, no blurred vision, no visual loss. ENMT: no dentures, no hoarseness, no swallowing difficulties, no hearing loss, no ear infection(s), no nose bleeds. Cardiovascular: normal blood pressure, no chest pain, regular heartbeat, no heart murmur. Respiratory: no shortness of breath, no cough, no asthma, no wheezing. Gastrointestinal: no nausea, no vomiting, no diarrhea, no constipation, no blood in stool, no change in bowel habits, no abdominal pain, no hepatitis. Genitourinary: no kidney stones, no urine infection, no dysuria. Musculoskeletal: no pain, no weakness. Skin: no changing moles, no rash, no skin lumps. Neurologic: no seizures, no epilepsy, no headache. Psychiatric: no emotional or psychiatric problem. Heme/Lymph: no bleeding problems, no anemia, no blood clots, no transfusions. Allergy/Immunologic: no swollen lymph nodes/glands, no IV drug abuse. Other: Additional ROS info: Except as noted in the above Review of Systems and in the History of Present Illness, all other systems have been reviewed and are negative or noncontributory. Physical Exam Vitals & Measurements HR: 80(Peripheral) RR: 16 BP: 130/88 HT: 66 in HT: 167.64 cm WT: 125 kg WT: 275 lb BMI: 44.48 HEENT: normal conjunctiva, sclera clear, no scleral icterus, EOM intact, PERRLA, oral mucosa moist without lesions. Neck: trachea midline, no mass, symmetric, no thyromegaly or nodules, no adenopathy Respiratory: lungs CTA, respirations non labored. Cardiovascular: regular rate and rhythm, no murmur, no pedal edema or varicosities. Gastrointestinal: obese, soft, non distended, no tenderness, no masses, no palpable hernias, diastasis recti no, no hepatosplenomegaly; normal bs Lymphatic: no cervical adenopathy, Musculoskeletal: normal gait, digits and nails without infection, nodes, cyanosis, clubbing. Skin: no rashes, no lesions, no ulcers, no subcutaneous nodules, induration. Psychiatric/Neuro: oriented to time, place, person, judgement normal, affect appropriate for age, insight intact, no focal deficits. Tests: labs reviewed, x-rays reviewed, review of old records completed, Discussed surgical options, risks, and possible complications with patient. Assessment/Plan 1. Symptomatic cholelithiasis (K80.20: Calculus of gallbladder without cholecystitis without obstruction) plan laparoscopic cholecystectomy with possible intraoperative cholangiogram; informed consent obtained. 2. BMI 40.0-44.9, adult (Z68.41: Body mass index [BMI] 40.0-44.9, adult) recommend low fat diet and exercise. Follow-up No qualifying data available Problem List/Past Medical History Ongoing Anxiety BMI 40.0-44.9, adult Cholelithiasis Depression Diabetes HTN (hypertension) Hypertriglyceridemia Paresthesia Pure hypercholesterolemia Right foot drop Symptomatic cholelithiasis Historical No qualifying data Procedure/Surgical History Decompression of lumbar spine. Medications lisinopril 10 mg Tab, 10 mg= 1 tab(s), Oral, Daily Pristiq 100 mg Tab-ER, 100 mg= 1 tab(s), Oral, Daily Vistaril 25 mg Cap, 25 mg= 1 cap(s), Oral, QID, PRN Allergies No Known Allergies No Known Medication Allergies Social History Alcohol - Denies Alcohol Use, 01/06/2022 Substance Abuse - Denies Substance Abuse, 01/06/2022 Tobacco Never (less than 100 in lifetime) Tobacco Use:. Never Smokeless Tobacco Use:., 01/06/2022 Family History Diabetes mellitus type 2: Father. Esophageal cancer: Sister. Heart disease: Mother. Hypertension: Mother. Primary malignant neoplasm of colon: Brother. Primary malignant neoplasm of prostate: Father. Immunizations Vaccine Date Status Comments influenza virus vaccine, inactivated - Not Given Patient Refuses [facility] Comment on above: Result Comment: Elec tronically Signed By: DARIUS MATTA, Macy Jeffery\Date and Time Signed: 01/12/22 17:03 EDT Evaluation + Plan note Note Date & Type Note Facility Evaluation + Plan note No data available for this section General Surgery [place] Progress note Note Date & Type Note Facility Progress note No data available for this section General Surgery [place] Summary Purpose Family History No Family History Records FoundNo Family History Records Found Advance Directives No Advanced Directives Records FoundNo Advanced Directives Records Found Additional Source Comments (unrecognized sect ion and content) No Status Records FoundNo Status Records Found INFORMATION SOURCE (unrecogn ized section and content) DATE CREATED AUTHOR 02/17/2022 [facility] DATE CREATED AUTHOR AUTHOR'S ORGANIZ ATION 02/23/2022 [facility] Patient Care team informatio n (unrecognized section and content) Personnel Name: Jairo Geronimo MD Address: Address: [address] [place] [address] FOR RECORDS PERTAINING TO PATIENTS WHO ARE OR HAVE BEEN ENROLLED IN A CHEMICAL DEPENDENCY/SUBSTANCEABUSE PROGRAM, SOME INFORMATION MAY BE OMITTED. This clinical summary was aggregated from multiple sources. Caution should be exercised in using it in the provision of clinical care. This summary normalizes information from multiple sources, and as a consequence, information in this document may materially change the coding, format and clinical context of patient data. In addition, data may be omitted in some cases. CLINICAL DECISIONS SHOULD BE BASED ON THE PRIMARY CLINICAL RECORDS. [employer] [facility]. provides no warranty or guarantee of the accuracy or completeness of information in this document.
[2024-12-23 19:41] VITALS: BP 130/71; PULSE 102; TEMP 36.7; O2SAT 97; BMI 41.8
--- NOTE | 2024-12-23 21:54 | ED_ITS ---
HPI HPI - General Adult General Chief complaint: Recheck/Abnormal Lab/Rx Stated complaint: POSS HIGH SUGAR Time Seen by Provider: 12/23/24 20:42 Source: patient Mode of arrival: walk-in History of Present Illness HPI narrative: past history of HTN. 2 week history of increased thirst and polyuria. Mild nausea yesterday. No abdominal pain. Family member checked his BS and it was over 500 and brought him in. no dysuria Related Data Previous Rx's ?Medication ?Instructions ?Recorded hydrocodone 5 mg-acetaminophen 325 1 tab PO Q8H PRN pa in #12 tabs 06/02/23 mg tablet Allergies Allergy/AdvReac Type Severity Reaction Status Date / Time No Known Drug Allergies Allergy Verified 06/02/23 16:08 Opioid HPI Opioid Management Most Recent Opioid Data: Last Pain Scale 5 06/02/23, 16:14 Review of Systems ROS Status of ROS 10 or more systems reviewed and unremark able except as noted in history and below PFSH PFSH Social History Smoking status: Never smoker Little interest or pleasure in doing things: not at all Feeling down, depressed, or hopeless: not at all Exam Constitutional Vital Signs, click to edit/add: Last Vital Signs Temp 98.1 F 12/23/24 19:41 Pulse 102 H 12/23/24 19:41 Resp 16 12/23/24 19:41 BP 130/71 12/23/24 19:41 Pulse Ox 97 12/23/24 19:41 O2 Del Method Room Air 12/23/24 19:41 Common normals: no apparent distress, oriented x3, no limitations, alert and well nourished [facility] Common normals: normocephalic and head/scalp atraumatic Eye Common normals: EOMs intact bilaterally and conjunctivae normal Respiratory Common normals: normal respiratory effort, no retractions, no use of accessory muscles and clear to auscultation bilaterally Cardio Common normals: regular rate, regular rhythm, S1 normal heart sound and S2 normal heart sound GI Common normals: Normal to inspection, nondistended, normoactive bowel sounds present, soft to palpation and non-tender Extremity Common normals: normal to inspection and full ROM Neuro Common normals: oriented x3, CN's II-XII intact bilaterally, moves all extremities and no focal motor deficits Psych Appearance: grossly normal Course Vital Signs Vital signs: Vital Signs Temperature 98.1 F 12/23/24 19:41 Pulse Rate 102 H 12/23/24 19:41 Respiratory Rate 16 12/23/24 19:41 Blood Pressure 130/71 12/23/24 19:41 Pulse Oximetry 97 12/23/24 19:41 Oxygen Delivery Method Room Air 12/23/24 19:41 Temperature 98.1 F 12/23/24 19:41 Pulse Rate 102 H 12/23/24 19:41 Respiratory Rate 16 12/23/24 19:41 Blood Pressure 130/71 12/23/24 19:41 Pulse Oximetry 97 12/23/24 19:41 Oxygen Delivery Method Room Air 12/23/24 19:41 Medical Decision Making MDM Narrative Medical decision making narrative: polyuria and polydipsia for past 2 weeks. Arun family checked his blood sugar and it was over 500. Patient asymptomatic. RBS here 508. Patient given 18U humalog and BS decreased 319. He is not in DKA. labs reveal elevated LFTs likely from fatty liver. Patient discharged with a sliding scale to follow up for the next 1-2 days and then to follow up with his PCP to manage his BS Lab Data Labs: Lab Results 12/23/24 12/23/24 12/23/24 Range/Units 19:46 20:39 20:44 WBC 13.4 H (4.0-11.0) 10^3/uL RBC 5.27 (4.70-6.10) 10^6/uL Hgb 14.9 (14.0-18.0) g/dL Hct 44.3 (42.0-54.0) % MCV 84.1 (80.0-94.0) fL MCH 28.3 (25.9-34.0) pg MCHC 33.6 (29.9-35.2) g/dL RDW 13.5 (11.0-15.0) % Plt Count 243 (150-450) 10^3/uL MPV 13.0 (9.5-13.5) fL Neut % (Auto) 65.9 (43.0-75.0) % Lymph % (Auto) 25.8 (20.5-60.0) % [place] % (Auto) 5.4 (1.7-12.0) % Eos % (Auto) 2.0 (0.9-7.0) % Baso % (Auto) 0.4 (0.2-2.0) % Neut # (Auto) 8.8 H (1.4-6.5) 10^3/uL Lymph # (Auto) 3.5 (1.2-3.8) 10^3/uL [place] # (Auto) 0.7 (0.3-0.8) 10^3/uL Eos # (Auto) 0.3 (0.0-0.7) 10^3/uL Baso # (Auto) 0.1 (0.0-0.1) 10^3/uL Abs Immat Gran (auto) 0.07 H (0.00-0.03) 10^3/uL Imm/Tot Granulo (auto) 0.5 (0.0-0.5) % Sodium 132 L (136-145) mmol/L Potassium 4.7 (3.5-5.1) mmol/L Chloride 97 L (98-107) mmol/L Carbon Dioxide 22.6 (21.0-32.0) mmol/L Anion Gap 17.1 BUN 28.0 H (7.0-18.0) mg/dL Creatinine 1.66 H (0.70-1.30) mg/dL Est GFR ( Amer) 51 L (>=60 mL/min/1.73m^2) Est GFR (Non-Af Amer) 42 L (>=60 mL/min/1.73m^2) BUN/Creatinine Ratio 16.9 Glucose 508 H* (74-106) mg/dL Lactate 1.8 (0.4-2.0) mmol/L Calcium 9.1 (8.5-10.1) mg/dL Total Bilirubin 0.4 (0.2-1.0) mg/dL AST 56 H (15-37) U/L ALT 180 H (16-63) U/L Alkaline Phosphatase 149 H (46-116) U/L Total Protein 7.4 (6.4-8.2) g/dL Albumin 3.4 (3.4-5.0) g/dL Globulin 4.0 g/dL Albumin/Globulin Ratio 0.9 Urine Color Lt. yellow (YELLOW) Urine Clarity Clear (CLEAR) Urine pH 5.5 (5.0-9.0) Ur Specific [place] 1.010 (1.005-1.025) Urine Protein Negative (NEG/TRACE) mg/dL Urine Glucose (UA) >=1000 A (NEGATIVE) mg/dL Urine Ketones Trace A (NEGATIVE) mg/dL Urine Occult Blood Negative (NEGATIVE) Urine Nitrite Negative (NEGATIVE) Urine Bilirubin Negative (NEGATIVE) Urine Urobilinogen 0.2 (0.2-1.0) EU/dL Ur Leukocyte Esterase Negative (NEGATIVE) Urine RBC 0-2 (0-2) #/HPF Urine WBC 2-5 A (NONE SEEN) #/HPF Ur Squamous Epith Cells None seen (NONE/RARE) #/LPF Urine Crystals None seen (None Seen) #/HPF Urine Bacteria None seen (NONE SEEN) #/HPF Urine Casts None seen (NONE SEEN) #/LPF Urine Mucus None seen (NONE SEEN) Ur Culture Indicated? No Acetone, Qual Negative (NEGATIVE) POC Glucose 510 H* (74-106) mg/dL 12/23/24 Range/Units 23:13 WBC (4.0-11.0) 10^3/uL RBC (4.70-6.10) 10^6/uL Hgb (14.0-18.0) g/dL Hct (42.0-54.0) % MCV (80.0-94.0) fL MCH (25.9-34.0) pg MCHC (29.9-35.2) g/dL RDW (11.0-15.0) % Plt Count (150-450) 10^3/uL MPV (9.5-13.5) fL Neut % (Auto) (43.0-75.0) % Lymph % (Auto) (20.5-60.0) % [place] % (Auto) (1.7-12.0) % Eos % (Auto) (0.9-7.0) % Baso % (Auto) (0.2-2.0) % Neut # (Auto) (1.4-6.5) 10^3/uL Lymph # (Auto) (1.2-3.8) 10^3/uL [place] # (Auto) (0.3-0.8) 10^3/uL Eos # (Auto) (0.0-0.7) 10^3/uL Baso # (Auto) (0.0-0.1) 10^3/uL Abs Immat Gran (auto) (0.00-0.03) 10^3/uL Imm/Tot Granulo (auto) (0.0-0.5) % Sodium (136-145) mmol/L Potassium (3.5-5.1) mmol/L Chloride (98-107) mmol/L Carbon Dioxide (21.0-32.0) mmol/L Anion Gap BUN (7.0-18.0) mg/dL Creatinine (0.70-1.30) mg/dL Est GFR ( Amer) (>=60 mL/min/1.73m^2) Est GFR (Non-Af Amer) (>=60 mL/min/1.73m^2) BUN/Creatinine Ratio Glucose (74-106) mg/dL Lactate (0.4-2.0) mmol/L Calcium (8.5-10.1) mg/dL Total Bilirubin (0.2-1.0) mg/dL AST (15-37) U/L ALT (16-63) U/L Alkaline Phosphatase (46-116) U/L Total Protein (6.4-8.2) g/dL Albumin (3.4-5.0) g/dL Globulin g/dL Albumin/Globulin Ratio Urine Color (YELLOW) Urine Clarity (CLEAR) Urine pH (5.0-9.0) Ur Specific [place] (1.005-1.025) Urine Protein (NEG/TRACE) mg/dL Urine Glucose (UA) (NEGATIVE) mg/dL Urine Ketones (NEGATIVE) mg/dL Urine Occult Blood (NEGATIVE) Urine Nitrite (NEGATIVE) Urine Bilirubin (NEGATIVE) Urine Urobilinogen (0.2-1.0) EU/dL Ur Leukocyte Esterase (NEGATIVE) Urine RBC (0-2) #/HPF Urine WBC (NONE SEEN) #/HPF Ur Squamous Epith Cells (NONE/RARE) #/LPF Urine Crystals (None Seen) #/HPF Urine Bacteria (NONE SEEN) #/HPF Urine Casts (NONE SEEN) #/LPF Urine Mucus (NONE SEEN) Ur Culture Indicated? Acetone, Qual (NEGATIVE) POC Glucose 359 H (74-106) mg/dL Discharge Plan Discharge Chief Complaint: Recheck/Abnormal Lab/Rx Clinical Impression: Acute hyperglycemia Patient Disposition: Home, Self-Care Prescriptions / Home Meds: No Action hydrocodone-acetaminophen 5-325 mg tablet 1 tab PO Q8H PRN (Reason: pain) Qty: 12 0RF Print Language: Chinese Instructions: Diabetic Hyperglycemia (ED) Additional Instructions: follow up with Dr Monsivais wednesday Referrals: Bjorn Monsivais MD [Primary Care Provider, Family Practice] - 1 week
[2024-12-23 21:58] LABS: Hematocrit 44.3 % (42.0-54.0); Hemoglobin 14.9 g/dL (14.0-18.0); Immature Granulocytes Abs Auto 0.07 10^3/uL (0.00-0.03); Immature Granulocytes Pct Auto 0.5 % (0.0-0.5); Lymphocytes Absolute Auto 3.5 10^3/uL (1.2-3.8); Mean Corpuscular HGB Conc 33.6 g/dL (29.9-35.2); Mean Corpuscular Hemoglobin 28.3 pg (25.9-34.0); Mean Corpuscular Volume 84.1 fL (80.0-94.0); Platelet Count 243 10^3/uL (150-450); Red Blood Count 5.27 10^6/uL (4.70-6.10); White Blood Count 13.4 10^3/uL (4.0-11.0)
[2024-12-23 22:03] LABS: Glucose Urine UA >=1000 mg/dL (NEGATIVE)
[2024-12-23 22:17] LABS: Lactate/Lactic Acid 1.8 mmol/L (0.4-2.0)
[2024-12-23 22:19] LABS: Cast Seen? NONE SEEN #/LPF (NONE SEEN); Crystals Seen? None Seen #/HPF (None Seen); Urine Culture Indicated NO
[2024-12-23] MEDS: 0.9 % SODIUM CHLORIDE 1,000 ML 999 ML IV (22:21)
[2024-12-23 22:25] LABS: Alanine Aminotransferase 180 U/L (16-63); Albumin Globulin Ratio 0.9; Albumin Level 3.4 g/dL (3.4-5.0); Alkaline Phosphatase 149 U/L (46-116); Anion Gap 17.1; Aspartate Amino Transferase 56 U/L (15-37); Blood Urea Nitrogen 28.0 mg/dL (7.0-18.0); Calcium 9.1 mg/dL (8.5-10.1); Carbon Dioxide 22.6 mmol/L (21.0-32.0); Chloride 97 mmol/L (98-107); Estimated GFR (African America 51 (>=60 mL/min/1.73m^2); Estimated GFR (Non-African Ame 42 (>=60 mL/min/1.73m^2); Globulin 4.0 g/dL; Potassium 4.7 mmol/L (3.5-5.1); Sodium 132 mmol/L (136-145); Total Protein 7.4 g/dL (6.4-8.2)
[2024-12-23] MEDS: INSULIN ASPART 300 UNIT/3 ML PEN 18 UNIT SUBQ (22:35)
[2024-12-23 22:52] LABS: Glucose 508 mg/dL (74-106)
[2024-12-23 23:14] VITALS: BP 140/72; PULSE 84; O2SAT 98
== END 2024-12-23 23:55 | disposition home or self-care (01) ==
PROVIDERS: Emergency Provider Internal Medicine; PCP Family Medicine
DX: R73.9 Hyperglycemia, unspecified (principal); I10 Essential (primary) hypertension
CPT/HCPCS: 36415; 80053; 81001; 82009; 83605; 85025; 99285

== ENCOUNTER 2024-12-26 07:42 | Outpatient (OUT) | payer OTHER, SELFPAY ==
--- OUTSIDE RECORDS SUMMARY | 2024-12-25 04:45 | XMS_ITS ---
Author Organization The [facility] in [place] Address [address] [place] [address] Care Team Providers Care Social Media Analyst Name Role Phone Constantin Monsivais Primary Care Provider [phone] Allergies No Known Allergies REASON FOR VISIT Presents to office alone for c/o elevated blood sugars. Ended up over the weekend for blood glucose>600, ER started him on insulin aspart Medications Medication SIG (Take, Route, Frequency, Duration) Notes Start Date End Date Status Glimepiride 2 MG 1 tablet with breakf ast or the first main meal of the day Orally Once a day; Duration: 30 days 12/25/2024 Active metFORMIN HCl 500 MG 1 tablet with a db l Orally bid; Duration: 30 days 12/25/2024 Active Lisinopril 10 mg Take 1 tablet orally daily; Duration: 14 days Active Desvenlafaxine Succinate ER 100 MG 1 tablet Orally Once a day; Duration: 90 days Active Social History Tobacco Use: Social History Observation Description Date Details (start date - stop date) Never Smoker NA - NA Tobacco Use/Smoking Question Answer Notes Patient is a nonsmoker AUDIT-C (Standard) Question Answer Notes Did you have a drink containing alcohol in the p ast year? No Points 0 Interpretation Negative Vital Signs Weight 302.8 lbs 12/25/2024 Height 70 in 12/25/2024 Blood pressure systolic 154 mm Hg 12/26/19 25 Blood pressure diastolic 92 mm Hg 025 BMI 43.44 kg/m2 12/25/2024 Encounters Encounter Location Date Provider Diagnosis [facility] [address] [place] [address] 12/25/2024 Constantin Monsivais Hypertension I10 ; Diabetes E11.9 and Well adult Z00.00 Assessments Encounter Date Diagnosis (ICD Code) Assessment Notes Treatment Notes Treatment Clinical Notes Section Notes 12/25/2024 Hypertension (ICD-10 - I10) 12/25/2024 Diabetes (ICD-10 - E11.9) 12/25/2024 Well adult (ICD-10 - Z00.00) Plan Of Treatment Medication Medication Name Sig Start Date Stop Date Notes Glimepiride 2 MG 1 tablet with breakf ast or the first main meal of the day Orally Once a day; Duration: 30 days 12/25/2024 metFORMIN HCl 500 MG 1 tablet with a db l Orally bid; Duration: 30 days 12/25/2024 Pending Test Test Name Order Date HEMOGLOBIN A1C (GLYCO) 12/25/2024 LIPID PANEL (CHOL/TRIG/HDL/LDL) 12/26/19 25 URIC ACID 12/25/2024 STOOL OCCULT BLOOD 12/25/2024 THYROID PANEL (T4/TSH/FREE T3) PSA, SCREENING 12/25/2024 CMP (COMP MET JIMENEZ) w/eGFR CKD-EPI 2024 CBC WITH DIFF 12/25/2024 Progress Notes * Jil WALKERDOB:1960 (64 yo M)Acc No.[id number]:12/25/2024 UNLOCKED PROGRESS NOTE Progress Note Patient: Jil ROLLINS Provider: Zafar Monsivais ([facility])MD :1960 A ge:64 Y S ex:Male Date:12/25/2024 Address:[address] [place], [place] [id number] Check In:08:25 AM ESTCheck O ut:09:10 AM EST Subjective: * Chief Complaints: * 1 . Presents to office alone for c/o elevated blood sugars. Ended up over the weekend for blood glucose >600. 2. ER started him on insulin aspart. * HPI: G eneral: DIet - new onset - DM Not on meds thngks understand diet. D epression Screening: PHQ-2 (2015 Edition) L ittle interest or pleasure in doing things??Several days F eeling down, depressed, or hopeless? N ot at all T otal Score 1 * ROS: E ENT: hearing changes d enies. v isual changes d enies.?non-healing mouth sores d enies. s wollen glands or neck lumps d enies. h oarseness d enies. s ore throat d enies. d ifficulty swallowing d enies. n ose bleeds d enies. n lexi congestion d enies. e ar ache d enies. e ar discharge?denies. r inging in ears d enies. l ight sensitivity d enies. e ye pain d enies. b lurring d enies. e ye irritation d enies. d ouble vision d enies.?vision loss d enies. G eneral/Constitutional: Sweats: D enies. F atigue d enies. S leep problems d enies. A norexia d enies. M alaise d enies. W eight loss d enies.?Fatigue or Weakness d enies. F ever or Chills d enies. C ardiovascular: Shortness of Breath w/lying flat d enies. L ightheadedness/dizziness d enies. C hest tightness/ heavy pressure d enies. S welling of legs, ankles, or feet d enies. W aking up with shortness of breath d enies. C hest pain denies. P alpitations d enies. W eight gain d enies. R espiratory: Chronic or frequent cough d enies. C oughing up blood?denies. D ifficulty breathing d enies. P roductive cough d enies. S noring?denies. S hortness of breath that awakens from sleep (PND) d enies. C hest pain d enies. S putum production d enies. W heezing d enies. M usculoskeletal: Joint pain d enies. J oint Fluid d enies. B ack pain d enies. K nee pain d enies. N vika pain d enies. J oint Stiffness d enies. M uscle cramps d enies. W eakness of muscles d enies. A rthritis d enies. M uscle aches d enies. P ain in shoulder(s) d enies. S wollen joints d enies. * Medical History: D epression, Anxiety, Hypertension, Hypercholesteremia, Chest pain, Hypertriglyceridemia, L3-4 disc protusion, Foot drop. * Surgical History: h emilaminectomy with partial facetectomy left and right , choleystectomy 2021. * Hospitalization/Major Diagno stic Procedure: s ee above . * Family History: F ather: , prostate cancer, diagnosed with Other malignant neoplasm of unspecified site. M other: , diagnosed with Unspecified heart disease. B rother(s): alive, brain ca, diagnosed with Other malignant neoplasm of unspecified site. S ister(s): alive, throat ca, diagnosed with Other malignant neoplasm of unspecified site. 2 brother(s) , 3 sister(s) . 2 son(s) - healthy. . * Social History: T obacco Use: T obacco Use/Smoking P atient is a n onsmoker D rug/Alcohol: A MONIKA-C (Standard) D id you have a drink containing alcohol in the past year? N o P oints 0 I nterpretation N egative * Medications: T aking Desvenlafaxine Succinate ER 100 MG Tablet Extended Release 24 Hour 1 tablet Orally Once a day , Taking Lisinopril 10 mg Tablet Take 1 tablet orally daily * Allergies: N .K.D.A. Objective: * Vitals: W t:302.8lbs, Ht: 70 in, BP:154/92mm Hg, BMI:43.44Index, Ht-cm: 177.8 cm, Wt-k.35 kg. * Examination: P hysical Exam: GENERAL: w ell developed, well nourished, in no acute distress. HEAD: n ormocephalic/atraumatic. EYES: p upils equal, round and reactive to light, conjunctivae and sclerae normal. EARS: n o deformity or lesion of external ear, canals and TM appear normal bilaterally, TM's intact, not inflamed with normal light reflex, hearing grossly normal to conversational speech. NOSE: n o deformity, discharge, inflammation, or lesions.? MOUTH: m ucous membranes moist, normal oropharynx and posterior pharynx without lesions or exudates, tongue normal, dentition normal. NECK: n vika supple, no masses or palpable cervical nodes, trachea midline, thyroid without nodules, masses, tenderness, or enlargement. CHEST: n o chest wall deformity, no chest wall tenderness.? LUNGS: n ormal respiratory effort and clear to auscultation, no wheezes, rales, or rhonchi, good air exchange. CARDIO: r egular rate and rhythm, normal S1 and S2, nor murmur, rub, or gallop. PULSES: n ormal capillary refill. ABDOMEN: s oft, non-distended, non-tender, no masses. MUSCULOSKELETAL: n o deformity or scoliosis noted, normal range of motion, joints normal, no erythema, edema, effusion, or ecchymosis. EXTREMITY: n o clubbing, cyanosis, edema, or deformity with normal ROM in both upper and lower bilateral extremities. NEUROLOGIC: g rossly normal. SKIN: n o rashes, ulcerations, or suspicious lesions. LYMPH NODES: n o cervical adenopathy, nodes normal. MENTAL STATUS: a lert and oriented x3, normal mood and affect. Assessment: * Assessment: 1. H ypertension - I10 (Primary) 2 . D iabetes - E11.9 3 .?Well adult - Z00.00 Plan: * Treatment: 2. W ell adult L AB: HEMOGLOBIN A1C (GLYCO) L AB: LIPID PANEL (CHOL/TRIG/HDL/LDL) L AB: URIC ACID L AB: STOOL OCCULT BLOOD L AB: THYROID PANEL (T4/TSH/FREE T3) L AB: PSA, SCREENING L AB: CMP (COMP MET JIMENEZ) w/eGFR CKD-EPI L AB: CBC WITH DIFF * Preventive Medicine: Screenings/Counseling: B AK ACTION PLAN Above Normal BMI Follow-up D ietary management education, guidance, and counseling See treatment section of progress note for complete details of management plan. * * Electronic signature of Constantin Monsivais MD, [id number] on 12/26/2024 at 07:44 AM EDT Sign off status: Pending Visit Status: C HK (Check Out) * Provider: Zafar Monsivais ([facility])MD Date: 12/25/2024 Generated for Printi ng/Fafrannyg/eTransmitting on: 0 12/26/2024 07:44 AM EDT History and Physical Notes * HPI (History of Present Illness) Category Sub-Category Detail Notes Category Not es General DIet - new onset - DM Not on meds thngks understand diet Depression Screening PHQ-2 (2015 Edition) Little interest or pleasure in doing things?: Several days Feeling down, depressed, or hopeless?: N ot at all Total Score: 1 Examination Category Sub-Category Detail Notes Category Not es Physical Exam GENERAL: well developed, well nourished, in no acute distress HEAD: normocephalic/atraum atic EYES: pupils equal, round and reactive to light, conjunctivae and sclerae normal EARS: no deformity or lesi on of external ear, canals and TM appear normal bilaterally, TM's intact, not inflamed with normal light reflex, hearing grossly normal to conversational speech NOSE: no deformity, discha rge, inflammation, or lesions MOUTH: mucous membranes jamee st, normal oropharynx and posterior pharynx without lesions or exudates, tongue normal, dentition normal NECK: neck supple, no mass es or palpable cervical nodes, trachea midline, thyroid without nodules, masses, tenderness, or enlargement CHEST: no chest wall deform ity, no chest wall tenderness LUNGS: normal respiratory e ffort and clear to auscultation, no wheezes, rales, or rhonchi, good air exchange CARDIO: regular rate and rhy thm, normal S1 and S2, nor murmur, rub, or gallop PULSES: normal capillary ref ill ABDOMEN: soft, non-distended, non-tender, no masses RECTAL: MUSCULOSKELETAL: no deformity or scol iosis noted, normal range of motion, joints normal, no erythema, edema, effusion, or ecchymosis EXTREMITY: no clubbing, cyanosi s, edema, or deformity with normal ROM in both upper and lower bilateral extremities NEUROLOGIC: grossly normal SKIN: no rashes, ulceratio ns, or suspicious lesions LYMPH NODES: no cervical adenopat hy, nodes normal MENTAL STATUS: alert and oriented x 3, normal mood and affect
--- OUTSIDE RECORDS SUMMARY | 2024-12-26 07:44 | XMS_ITS | CCD ---
Author Organization [facility] Care Team Providers Care Director Workforce Management Name Role Phone DARIUS, DR CAVAZOS Admitting [...] Medication Allergies] Propensity to adverse reactions (disorder) [facility] Repository Medications Current Medications Medication Drug Class(es) [...] 12-29-2021 Chronic Other aftercare (1 source) Other shelter (current) drug therapy; Translations: [OTH RETIREMENT CURRENT DRUG THERAPY] Onset: 12-22-2021 Episodic Other [...] MATTA, CHIDI Jc Only if needed [address] [place] [address]- Additional Instructions: Problem List/Past Medical [...] - Not Given Patient Refuses Normal [facility] Comment on above: Result Comment: Elec tronically Signed By: DARIUS MATTA, Macy Jeffery\Date and Time Signed: 02/18/22 15:24 EST Pathology Noteon 02-16-2022 Pathology Note [id number]: 127 Normal [facility] Operative Reporton Operative Report [id number]: 127 Normal [facility] Lab Reportson 02-06-2022 Lab Reports [id number]#1.00CD: 127 Normal [facility]11 SARS-CoV-2 (COVID-19) RNA RONALD+probe Ql (Unsp spec) Not detected Normal NOT DETECTED [facility] Comment on above: Result Comment: This test is not yet approved or cleared by the [place] FDA. When there are no FDA-approved or cleared tests available, and other criteria are met, FDA can make tests available under an emergency access mechanism called an Emergency Use Authorization (EUA). The EUA for this test is supported by the [place] of Health and Human Service's (HHS's) declaration [...] SARS-CoV-2. Performed By: #### C VDTB #### [facility] [address] [place] [address] Dr. Chinedu Vitale GLYCOHEMOGLOBIN A1Con 2021 ADA RECOMMENDATION SEE BELOW Normal [facility] Comment on above: Result Comment: ADA RECOMMENDED LIMIT 4.0 - 6.0 ADA THERAPEUTIC TARGET < 7.0 ACTION SUGGESTED > 7.0 Performed By: #### A 1C #### [facility] [address] [place] [address] Dr. Chinedu Vitale Glucose [Mass/Vol] 126 mg/dL Normal [facility] Comment on above: Performed By: #### A 1C #### [facility] [address] [address] [address] Chinedu Vitale HbA1c (Bld) [Mass fraction] 6.0 % Normal 4.5-6.2 [facility] Comment on above: Performed By: #### A 1C #### [facility] [address] [place] [address] Dr. Chinedu Vitale Lab Reportson 2022 Lab Reports [id number]: 127 Normal [facility] PROF CHEM 8 (BAS METB)on Anion gap [Moles/Vol] 10.1 mmol/L Normal [facility] Comment on above: Performed By: #### B MP #### [facility] [address] [place] [address] Dr. Chinedu Vitale Calcium [Mass/Vol] 9.1 mg/dL Normal 8.5-10.1 [facility] Comment on above: Performed By: #### B MP #### [facility] [address] [place] [address] Dr. Chinedu Vitale Chloride [Moles/Vol] 104 mmol/L Normal 98-107 [facility] Comment on above: Performed By: #### B MP #### [facility] [address] [place] [address] Dr. Chinedu Vitale CO2 [Moles/Vol] 28.2 mmol/L Normal 21.0-32.0 [facility] Comment on above: Performed By: #### B MP #### [facility] [address] [place] [address] Dr. Chinedu Vitale Creatinine [Mass/Vol] 1.08 mg/dL Normal 0.70-1.30 [facility] Comment on above: Performed By: #### B MP #### [facility] [address] [address] [address] Chinedu Vitale EGFR-AF EQUATORIAL GUINEAN >60 Normal >=60 [facility] Comment on above: Performed By: #### B MP #### [facility] [id number] Chinedu Vitale EGFR-NON AF EQUATORIAL GUINEAN >60 Normal >=60 [facility] Comment on above: Performed By: #### B MP #### [facility] [address] [address] [address] Chinedu Vitale Glucose [Mass/Vol] 105 mg/dL Normal 74-106 [facility] Comment on above: Performed By: #### B MP #### [facility] [address] [address] [address] Chinedu Vitale Potassium [Moles/Vol] 4.3 mmol/L Normal 3.5-5.1 [facility] Comment on above: Performed By: #### B MP #### [facility] [address] [address] [address] Chinedu Vitale Sodium [Moles/Vol] 138 mmol/L Normal 136-145 [facility] Comment on above: Performed By: #### B MP #### [facility] [address] [address] [address] Chinedu Vitale Urea nitrogen [Mass/Vol] 17.0 mg/dL Normal 7.0-18.0 [facility] Comment on above: Performed By: #### B MP #### [facility] [address] [address] [address] Chinedu Vitale Urea nitrogen/Creatinine [Mass ratio] 15.7 mg/mg Normal [facility] Comment on above: Performed By: #### B MP #### [facility] [address] [address] [address] Chinedu Vitale Consent for Procedure/Surger yon 01-07-2022 Consent for Procedure/Surgery [id number]: 127 Normal [facility] Ambulatory Visit Summaryon 0 01-06-2022 Ambulatory Visit [...] Paresthesia Pure hypercholesterolemia Right foot drop Normal [facility] RAD - CT Reporton 12-25-2021 RAD - CT Report [id number]: 127 Normal [facility] ED Note-Physicianon 12-24-19 22 ED Note-Physician [id number]: 127 Normal [facility] Physician Referralon 022 Physician Referral [id number]: 127 Normal [facility] CBC AUTO DIFFon 12-19-2021 BASO # 0.1 103/ul Normal 0.0-0.1 [facility] Comment on above: Performed By: #### C BC ####[facility] [address] [id number]. Chinedu Vitale Basophils/100 WBC (Bld) 0.5 % Normal 0.2-2.0 [facility] Comment on above: Performed By: #### C BC ####[facility] [address] [id number]. Chinedu Vitale EO # 0.5 103/ul Normal 0.0-0.7 [facility] Comment on above: Performed By: #### C BC ####[facility] [address] [place], [place] [address]Dr. Chinedu Vitale Eosinophils/100 WBC (Bld) 4.1 % Normal 0.9-7.0 [facility] Comment on above: Performed By: #### C BC ####[facility] [address] [place], [place] [address]Dr. Chinedu Vitale Erythrocyte distribution width (RBC) [Ratio] 14.4 % Normal 11.0-15.0 [facility] Comment on above: Performed By: #### C BC ####[facility] [address] [place], [place] [address]Dr. Chinedu Vitale Hematocrit (Bld) [Volume fraction] 46.9 % Normal 42.0-54.0 [facility] Comment on above: Performed By: #### C BC ####[facility] [address] [place], [place] [address]Dr. Chinedu Vitale Hemoglobin (Bld) [Mass/Vol] 15.2 g/dL Normal 14.0-18.0 [facility] Comment on above: Performed By: #### C BC ####[facility] [address] [place], [place] [address]Dr. Chinedu Vitale IG # 0.04 10e3/ul Critically high 0.00-0.03 [facility] Comment on above: Performed By: #### C BC ####[facility] [address] [place], [place] [address]Dr. Chinedu Vitale IG % 0.4 % Normal 0.0-0.5 [facility] Comment on above: Performed By: #### C BC ####[facility] [address] [id number]. Chinedu Vitale LYMPH # 3.5 103/ul Normal 1.2-3.8 [facility] Comment on above: Performed By: #### C BC ####[facility] [address] [address]Dr. Chinedu Vitale Lymphocytes/100 WBC (Bld) 31.6 % Normal 20.5-60.0 [facility] Comment on above: Performed By: #### C BC ####[facility] [address] [phone]. Chinedu Vitale MANUAL DIFF REQ NO Normal [facility] Comment on above: Performed By: #### C BC ####[facility] [address] [phone]. Chinedu Vitale MCH (RBC) [Entitic mass] 28.6 pg Normal 25.9-34.0 [facility] Comment on above: Performed By: #### C BC ####[facility] [address] [phone]. Antonettemoncho Vitale MCHC (RBC) [Mass/Vol] 32.4 g/dL Normal 29.9-35.2 [facility] Comment on above: Performed By: #### C BC ####[facility] [address] [phone] Vitale MCV (RBC) [Entitic vol] 88.3 fL Normal 80.0-94.0 [facility] Comment on above: Performed By: #### C BC ####[facility] [address] [phone] Vitale MONO # 0.9 103/ul Critically high 0.3-0.8 [facility] Comment on above: Performed By: #### C BC ####[facility] [address] [phone] Vitale Monocytes/100 WBC (Bld) 7.9 % Normal 1.7-12.0 [facility] Comment on above: Performed By: #### C BC ####[facility] [address] [address]Dr. Chinedu Vitale NEUT # 6.2 103/ul Normal 1.4-6.5 [facility] Comment on above: Performed By: #### C BC ####[facility] [address] [address]Dr. Chinedu Vitale Neutrophils/100 WBC (Bld) 55.5 % Normal 43.0-75.0 [facility] Comment on above: Performed By: #### C BC ####[facility] [address] [address]Dr. Chinedu Vitale Platelet mean volume (Bld) [Entitic vol] 11.6 fL Normal 9.5-13.5 [facility] Comment on above: Performed By: #### C BC ####[facility] [address] [address]Dr. Chinedu Vitale PLT 241 103/ul Normal 150-450 [facility] Comment on above: Performed By: #### C BC ####[facility] [address] [phone]. Chinedu Vitale RBC 5.31 106/ul Normal 4.70-6.10 [facility] Comment on above: Performed By: #### C BC ####[facility] [address] [address]Dr. Chinedu Vitale WBC 11.1 103/ul Critically high 4.0-11.0 [facility] Comment on above: Performed By: #### C BC ####[facility] [address] [phone]. Chinedu Vitale CT ABD/PELVIS WO CONon 12-19 [...] by: PAOLO PATINO Date: 2021-12-19 01:47 Normal [facility] LIPASEon 12-19-2021 Lipase [Catalytic activity/Vol] 127.0 U/L Normal 73.0-393.0 [facility] Comment on above: Performed By: #### L IPA, CMP, HSTROPN #### [facility] [address] [place], [place] [address] Dr. Chinedu Vitale PROF 14(COMP METB)on 022 Albumin [Mass/Vol] 3.9 g/dL Normal 3.4-5.0 [facility] Comment on above: Performed By: #### L IPA, CMP, HSTROPN #### [facility] [address] [place], [place] [address] Dr. Chinedu Vitale Albumin/Globulin [Mass ratio] 1.2 {ratio} Normal [facility] Comment on above: Performed By: #### L IPA, CMP, HSTROPN #### [facility] [address] [address] [address] Chinedu Vitale ALP [Catalytic activity/Vol] 89 U/L Normal 46-116 [facility] Comment on above: Performed By: #### L IPA, CMP, HSTROPN #### [facility] [address] [address] [address] Chinedu Vitale ALT [Catalytic activity/Vol] 21 U/L Normal 16-63 [facility] Comment on above: Performed By: #### L IPA, CMP, HSTROPN #### [facility] [address] [address] [address] Chinedu Vitale Anion gap [Moles/Vol] 9.7 mmol/L Normal [facility] Comment on above: Performed By: #### L IPA, CMP, HSTROPN #### [facility] [address] [place] [address] Dr. Chinedu Vitale AST [Catalytic activity/Vol] 13 U/L Critically low 15-37 [facility] Comment on above: Performed By: #### L IPA, CMP, HSTROPN #### [facility] [address] [place] [address] Dr. Chinedu Vitale Bilirubin [Mass/Vol] 0.3 mg/dL Normal 0.2-1.0 [facility] Comment on above: Performed By: #### L IPA, CMP, HSTROPN #### [facility] [address] [address] [address] Chinedu Vitale Calcium [Mass/Vol] 8.8 mg/dL Normal 8.5-10.1 [facility] Comment on above: Performed By: #### L IPA, CMP, HSTROPN #### [facility] [address] [place] [address] Dr. Chinedu Vitale Chloride [Moles/Vol] 104 mmol/L Normal 98-107 [facility] Comment on above: Performed By: #### L IPA, CMP, HSTROPN #### [facility] [address] [place], [place] [address] Dr. Chinedu Vitale CO2 [Moles/Vol] 26.4 mmol/L Normal 21.0-32.0 [facility] Comment on above: Performed By: #### L IPA, CMP, HSTROPN #### [facility] [address] [address] [address] Chinedu Vitale Creatinine [Mass/Vol] 1.12 mg/dL Normal 0.70-1.30 [facility] Comment on above: Performed By: #### L IPA, CMP, HSTROPN #### [facility] [address] [address] [address] Chinedu Vitale EGFR-AF EQUATORIAL GUINEAN >60 Normal >=60 [facility] Comment on above: Performed By: #### L IPA, CMP, HSTROPN #### [facility] [address] [place] [address] Dr. Chinedu Vitale EGFR-NON AF EQUATORIAL GUINEAN >60 Normal >=60 [facility] Comment on above: Performed By: #### L IPA, CMP, HSTROPN #### [facility] [address] [address] [address] Chinedu Vitale Globulin (S) [Mass/Vol] 3.3 g/dL Normal [facility] Comment on above: Performed By: #### L IPA, CMP, HSTROPN #### [facility] [address] [place] [address] Dr. Chinedu Vitale Glucose [Mass/Vol] 144 mg/dL Critically high 74-106 [facility] Comment on above: Performed By: #### L IPA, CMP, HSTROPN #### [facility] [address] [address] [address] Chinedu Vitale Potassium [Moles/Vol] 4.1 mmol/L Normal 3.5-5.1 [facility] Comment on above: Performed By: #### L IPA, CMP, HSTROPN #### [facility] [address] [place] [address] Dr. Chinedu Vitale Protein [Mass/Vol] 7.2 g/dL Normal 6.4-8.2 [facility] Comment on above: Performed By: #### L IPA, CMP, HSTROPN #### [facility] [address] [address] [address] Chinedu Vitale Sodium [Moles/Vol] 136 mmol/L Normal 136-145 [facility] Comment on above: Performed By: #### L IPA, CMP, HSTROPN #### [facility] [address] [address] [address] Chinedu Vitale Urea nitrogen [Mass/Vol] 19.0 mg/dL Critically high 7.0-18.0 [facility] Comment on above: Performed By: #### L IPA, CMP, HSTROPN #### [facility] [address] [address] [address] Chinedu Vitale Urea nitrogen/Creatinine [Mass ratio] 17.0 mg/mg Normal [facility] Comment on above: Performed By: #### L IPA, CMP, HSTROPN #### [facility] [address] [address] [address] Chinedu Vitale TROPONIN, HIGH SENSITIVITYon 12-19-2021 HSTROP 7.1 pg/mL Normal 4.0-76.1 [facility] Comment on above: Result Comment: CUT- OFF POINTS HAVE BEEN ESTABLISHED BASED ON THE FOURTH UNIVERSAL DEFINITIONS OF MYOCARDIAL INFARCTION. THE UPPER REFERENCE LIMIT (URL) OF TROPONIN, DEFINED THE 99TH PERCENTILE OF cTnI DISTRIBUTION IN A REFERENCE POPULATION, HAS BEEN CONFIRMED THE DECISION THRESHOLD FOR NC DIAGNOSIS. Performed By: #### L IPA, CMP, HSTROPN #### [facility] [address] [address] [address] Chinedu Vitale [facility] CBC AUTO DIFFon 11-27-2021 BASO # 0.1 103/ul Normal 0.0-0.1 [facility] Comment on above: Performed By: #### H FPFCBC ####[facility] [address] [address]Dr. Chinedu Vitale Basophils/100 WBC (Bld) 0.6 % Normal 0.2-2.0 [facility] Comment on above: Performed By: #### H FPFCBC ####[facility] [address] [address]Dr. Chinedu Vitale EO # 0.4 103/ul Normal 0.0-0.7 [facility] Comment on above: Performed By: #### H FPFCBC ####[facility] [address] [place], [place] [address]Dr. Chinedu Vitale Eosinophils/100 WBC (Bld) 3.9 % Normal 0.9-7.0 [facility] Comment on above: Performed By: #### H FPFCBC ####[facility] [address] [place], [place] [address]Dr. Chinedu Vitale Erythrocyte distribution width (RBC) [Ratio] 14.0 % Normal 11.0-15.0 [facility] Comment on above: Performed By: #### H FPFCBC ####[facility] [address] [place], [place] [address]Dr. Chinedu Vitale Hematocrit (Bld) [Volume fraction] 49.6 % Normal 42.0-54.0 [facility] Comment on above: Performed By: #### H FPFCBC ####[facility] [address] [place], [place] [address]Dr. Chinedu Vitale Hemoglobin (Bld) [Mass/Vol] 15.6 g/dL Normal 14.0-18.0 [facility] Comment on above: Performed By: #### H FPFCBC ####[facility] [address] [place], [place] [address]Dr. Chinedu Vitale IG # 0.02 10e3/ul Normal 0.00-0.03 [facility] Comment on above: Performed By: #### H FPFCBC ####[facility] [address] [place], [place] [address]Dr. Chinedu Vitale IG % 0.2 % Normal 0.0-0.5 [facility] Comment on above: Performed By: #### H FPFCBC ####[facility] [address] [place], [place] [address]Dr. Chinedu Vitale LYMPH # 2.8 103/ul Normal 1.2-3.8 [facility] Comment on above: Performed By: #### H FPFCBC ####[facility] [address] [address]Dr. Antonettemoncho Vitale Lymphocytes/100 WBC (Bld) 30.3 % Normal 20.5-60.0 [facility] Comment on above: Performed By: #### H FPFCBC ####[facility] [address] [address]Dr. Chinedu Vitale MCH (RBC) [Entitic mass] 27.8 pg Normal 25.9-34.0 [facility] Comment on above: Performed By: #### H FPFCBC ####[facility] [address] [place], [place] [address]Dr. Chinedu Vitale MCHC (RBC) [Mass/Vol] 31.5 g/dL Normal 29.9-35.2 [facility] Comment on above: Performed By: #### H FPFCBC ####[facility] [address] [place], [place] [address]Dr. Chinedu Vitale MCV (RBC) [Entitic vol] 88.3 fL Normal 80.0-94.0 [facility] Comment on above: Performed By: #### H FPFCBC ####[facility] [address] [place], [place] [address]Dr. Chinedu Vitale MONO # 0.7 103/ul Normal 0.3-0.8 [facility] Comment on above: Performed By: #### H FPFCBC ####[facility] [address] [place], [place] [address]Dr. Chinedu Vitale Monocytes/100 WBC (Bld) 7.2 % Normal 1.7-12.0 [facility] Comment on above: Performed By: #### H FPFCBC ####[facility] [address] [place], [place] [address]DrBarb Vitale NEUT # 5.3 103/ul Normal 1.4-6.5 [facility] Comment on above: Performed By: #### H FPFCBC ####[facility] [address] [place], [place] [address]DrBarb Vitale Neutrophils/100 WBC (Bld) 57.8 % Normal 43.0-75.0 [facility] Comment on above: Performed By: #### H FPFCBC ####[facility] [address] [address]Dr. Chinedu Vitale Platelet mean volume (Bld) [Entitic vol] 11.4 fL Normal 9.5-13.5 [facility] Comment on above: Performed By: #### H FPFCBC ####[facility] [address] [address]Dr. Chinedu Vitale PLT 261 103/ul Normal 150-450 [facility] Comment on above: Performed By: #### H FPFCBC ####[facility] [address] [address]DrBarb Vitale RBC 5.62 106/ul Normal 4.70-6.10 [facility] Comment on above: Performed By: #### H FPFCBC ####[facility] [address] [address]DrBarb Vitale WBC 9.1 103/ul Normal 4.0-11.0 [facility] Comment on above: Performed By: #### H FPFCBC ####[facility] [address] [address]DrBarb Vitale [employer] PROFILE (MALE)on 11-27-2021 Albumin [Mass/Vol] 4.1 g/dL Normal 3.4-5.0 [facility] Comment on above: Performed By: #### H FPFM #### [facility] [address] [address] [address] Chinedu Vitale Albumin/Globulin [Mass ratio] 1.2 {ratio} Normal [facility] Comment on above: Performed By: #### H FPFM #### [facility] [address] [address] [address] Chinedu Vitale ALP [Catalytic activity/Vol] 89 U/L Normal 46-116 [facility] Comment on above: Performed By: #### H FPFM #### [facility] [address] [address] [address] Chinedu Vitale ALT [Catalytic activity/Vol] 22 U/L Normal 16-63 [facility] Comment on above: Performed By: #### H FPFM #### [facility] [address] [address] [address] Chinedu Vitale AST [Catalytic activity/Vol] 15 U/L Normal 15-37 [facility] Comment on above: Performed By: #### H FPFM #### [facility] [address] [address] [address] Chinedu Vitale Bilirubin [Mass/Vol] 0.5 mg/dL Normal 0.2-1.0 [facility] Comment on above: Performed By: #### H FPFM #### [facility] [address] [place] [address] Dr. Chinedu Vitale Calcium [Mass/Vol] 9.1 mg/dL Normal 8.5-10.1 [facility] Comment on above: Performed By: #### H FPFM #### [facility] [address] [place] [address] Dr. Chinedu Vitale Chloride [Moles/Vol] 102 mmol/L Normal 98-107 [facility] Comment on above: Performed By: #### H FPFM #### [facility] [address] [place] [address] Dr. Chinedu Vitale CHOL-HDL RATIO NORM SEE BELOW Normal [facility] Comment on above: Result Comment: 3.3 - 4.4 LOW RISK 4.4 - 7.1 AVERAGE RISK 7.1 - 11.0 MODERATE RISK >11.0 HIGH RISK Performed By: #### H FPFM #### [facility] [address] [place] [address] Dr. Chinedu Vitale Cholesterol [Mass/Vol] 208 mg/dL Critically high <=200 [facility] Comment on above: Performed By: #### H FPFM #### [facility] [address] [place] [address] Dr. Chinedu Vitale Cholesterol in HDL [Mass/Vol] 41 mg/dL Normal 40-60 [facility] Comment on above: Performed By: #### H FPFM #### [facility] [address] [address] [address] Chinedu Vitale Cholesterol in LDL [Mass/Vol] 136.4 mg/dL Normal [facility] Comment on above: Performed By: #### H FPFM #### [facility] [address] [address] [address] Chinedu Vitale Cholesterol.total/Ch olesterol in HDL [Mass ratio] 5.1 {ratio} Normal [facility] Comment on above: Performed By: #### H FPFM #### [facility] [address] [address] [address] Chinedu Vitale CO2 [Moles/Vol] 29.8 mmol/L Normal 21.0-32.0 [facility] Comment on above: Performed By: #### H FPFM #### [facility] [address] [address] [address] Chinedu Vitale Creatinine [Mass/Vol] 1.21 mg/dL Normal 0.70-1.30 [facility] Comment on above: Performed By: #### H FPFM #### [facility] [address] [address] [address] Chinedu Vitale Globulin (S) [Mass/Vol] 3.5 g/dL Normal [facility] Comment on above: Performed By: #### H FPFM #### [facility] [address] [address] [address] Chinedu Vitale Glucose [Mass/Vol] 100 mg/dL Normal 74-106 [facility] Comment on above: Performed By: #### H FPFM #### [facility] [address] [address] [address] Chinedu Vitale HDL NORMAL > or = 60 mg/dl - LO W CARDIOVASCULAR RISK <40 mg/dl - HIGH CARDIOVASCULAR RISK Normal [facility] Comment on above: Performed By: #### H FPFM #### [facility] [address] [address] [address] Chinedu Vitale LDL CALC NORMAL SEE BELOW Normal [facility] Comment on above: Result Comment: <100 mg/dl OPTIMAL 100 - 129 mg/dl NEAR OR ABOVE OPTIMAL 130 - 159 mg/dl BORDERLINE HIGH 160 - 189 mg/dl HIGH >190 mg/dl VERY HIGH Performed By: #### H FPFM #### [facility] [address] [address] [address] Chinedu Vitale Potassium [Moles/Vol] 4.4 mmol/L Normal 3.5-5.1 [facility] Comment on above: Performed By: #### H FPFM #### [facility] [address] [address] [address] Chinedu Vitale Protein [Mass/Vol] 7.6 g/dL Normal 6.4-8.2 [facility] Comment on above: Performed By: #### H FPFM #### [facility] [address] [place] [address] Dr. Chinedu Vitale Sodium [Moles/Vol] 139 mmol/L Normal 136-145 [facility] Comment on above: Performed By: #### H FPFM #### [facility] [address] [place] [address] Dr. Chinedu Vitale Triglyceride [Mass/Vol] 153 mg/dL Critically high <=150 [facility] Comment on above: Performed By: #### H FPFM #### [facility] [address] [place] [address] Dr. Chinedu Vitale TSH 2.694 uIU/mL Normal 0.358-3.740 [facility] Comment on above: Performed By: #### H FPFM #### [facility] [address] [address] [address] Chinedu Vitale Urea nitrogen [Mass/Vol] 20.0 mg/dL Critically high 7.0-18.0 [facility] Comment on above: Performed By: #### H FPFM #### [facility] [address] [place] [address] Dr. Chinedu Vitale Urea nitrogen/Creatinine [Mass ratio] 16.5 mg/mg Normal [facility] Comment on above: Performed By: #### H FPFM #### [facility] [address] [address] [address] Chinedu Vitale VLDL CALC 30.6 mg/dL Normal [facility] Comment on above: Performed By: #### H [facility] #### [facility] [address] [address] [address] Chinedu Vitale Encounters Encounter Date Encounter Type Care Provider Facility Start: 02-18-2022 End: 02-19-2022 ambulatory Macy MONTES DE OCA Facility:[facility] Start: 02-18-2022 End: 02-18-2022 Patient encounter procedure Macy MONTES DE OCA General Surgery [facility] [place] Start: 02-11-2022 End: 02-12-[address] MACY MONTES DE OCA Facility:[facility] Start: 02-09-2022 Encounter for genera l adult medical examination without abnormal findings DR JAIRO GERONIMO [facility] Start: 02-09-2022 Encounter for preprocedural laboratory examination DR JAIRO GERONIMO [facility] Start: 02-08-2022 Encounter for preprocedural laboratory examination DR MACY MONTES DE OCA [facility] Start: 02-05-2022 End: 02-06-2022 Encounter for general adult medical examination without abnormal findings DR JAIRO GERONIMO Facility:[facility] Start: 02-05-2022 End: 02-06-[address] JAIRO GERONIMO Facility:[facility] Start: 02-05-2022 End: 02-06-2022 Encounter for preprocedural laboratory examination DR MACY MONTES DE OCA Facility:[facility] Start: 01-28-2022 End: [address] MACY MONTES DE OCA Facility:[facility] Start: 01-06-2022 End: 01-07-2022 ambulatory Macy MONTES DE OCA Facility:[facility] Start: 12-22-2021 ambulatory Macy MONTES DE OCA Facility :[facility] Start: 12-19-2021 End: 12-19-[address] JAIRO GERONIMO Facility:[facility] Start: 11-27-2021 End: 11-28-[address] JAIRO GERONIMO Facility:[facility] Procedures Date Procedure Procedure Detail Performing Clinician Start: 02-05-[address] MARY BETH MONTES DE OCA Comment on above: Performed By: #### P [facility] #### [facility] [id number] Chinedu Vitale Start: 11-27-[address] MARY BETH MONTES DE OCA Comment on above: Performed By: #### H [facility] #### [facility] [address] [place], [place] [address] Dr[address] Chinedu Vitale Decomp[facility] spine Macy MONTES DE OCA Immunizations Immunization Date Immunization Notes Care Provider Fa cility NEGATED: Highlighted row has not occurred!01-06-2022 influenza virus vaccine, unspecified formulation Macy MONTES DE OCA General Surgery [place] Payers Date Payer Category Payer Unknown [id number] 2.16.84 [id number] 1960 Unknown [id number] 2.16.84 [id number] 1960 Unknown [id number] 2.16.84 [id number] 1960 Unknown [id number] 2.16.84 [id number] 1960 Unknown [id number] 2.16.84 [id number] 1960 Unknown [id number] 2.16.8 [id number] 1960 Unknown [id number] 2.16.8 [id number] 1960 Unknown [id number] 2.16.8 [id number] 1960 Unknown [id number] 2.16.8 [id number] 1958 Self-pay [id number] 1958 Unknown [id number] Unknown [id number] 2.16.84 [id number] Social History Date Type Detail Facility Start: 01-06-2022 Tobacco smoking status Never s moked tobacco (finding) General Surgery [place] Tobacco smoking status Never Gener al Surgery [place] Sex Assigned At Male [facility] Hospital Discharge instructions 02-12-2022 Note Date & Type Note Facility 02-12-2022 Hospital Discharg e instructions Follow Up Care 02/12/2022 09:22:18 With:DARIUS MATTA, CHIDI Jc Address: [address] [place] [address] When: only if needed General Surgery [place] Clinical Note 02-11-2022 Note Date & Type [...] good condition. CC: Jairo Geronimo M.D. [facility] Clinical Note 01-12-2022 Note Date & Type Note Facility 01-12-2022 Note Chief Complaint consultation for cholelithiasis HPI Staff 61 year old male presents on consultation from Dr. Geronimo for cholelithiasis. Presented to [place] ED 12/18 with epigastric pain and nausea. [...] vaccine, inactivated - Not Given Patient Refuses [facility] Comment on above: Result Comment: Elec tronically Signed By: DARIUS MATTA, Macy Jeffery\Date and Time Signed: 01/12/22 17:03 EDT Evaluation + Plan note Note Date & Type Note Facility Evaluation + Plan note No data available for this section General Surgery [place] Progress note Note Date & Type Note Facility Progress note No data available for this section General Surgery [place] Summary Purpose Family History No Family History Records FoundNo Family History Records Found Advance Directives No Advanced Directives Records FoundNo Advanced Directives Records Found Additional Source Comments (unrecognized sect ion and content) No Status Records FoundNo Status Records Found INFORMATION SOURCE (unrecogn ized section and content) DATE CREATED AUTHOR 02/17/2022 [facility] DATE CREATED AUTHOR AUTHOR'S ORGANIZ ATION 02/23/2022 [facility] Patient Care team informatio n (unrecognized section and content) Personnel Name: Jairo Geronimo MD Address: Address: [address] [place] [address] FOR RECORDS PERTAINING TO PATIENTS WHO ARE [...] BE BASED ON THE PRIMARY CLINICAL RECORDS. [employer] [facility]. provides no warranty or guarantee of the accuracy or completeness of information in this document.
--- OUTSIDE RECORDS SUMMARY | 2024-12-26 07:45 | XMS_ITS | Clinical Summary ---
Author Organization [facility] Address [address] [place] [address] Care Team Providers Care Pipe Racker Name Role Phone Unavailable Primary Care Provider [...]
--- OUTSIDE RECORDS SUMMARY | 2024-12-26 07:45 | XMS_ITS | Patient Health Record ---
Author Organization The [facility] [place] Address [address] [place] [address] Care Team Providers Care Microfiche Camera Operator Name Role Phone Constantin Monsivais Primary Care Provider Allergies No Known Allergies Results Component Value Reference Range Notes CBC AUTO DIFF Reviewed date:12/24/2024 01:12:54 PM Interpretation: Performing Lab: Notes/Report: [facility] [place] [facility] , White Blood Count 13.4 4.0-11.0 10 3/uL Red Blood Count 5.27 4.70-6.10 10 6/uL Hemoglobin 14.9 14.0-18.0 g/dL Hematocrit 44.3 42.0-54.0 % Mean Corpuscular Volume 84.1 80.0-94.0 fL Mean Corpuscular Hemoglobin 28.3 25.9-34.0 pg Mean Corpuscular HGB Conc 33.6 29.9-35.2 g/dL Red Cell Distribution Width 13.5 11.0-15.0 % Platelet Count 243 150-450 10 3/uL Mean Platelet Volume 13.0 9.5-13.5 fL Neutrophils Percent Auto 65.9 43.0-75.0 % Lymphocytes Percent Auto 25.8 20.5-60.0 % Monocytes Percent Auto 5.4 1.7-12.0 % Eosinophils Percent Auto 2.0 0.9-7.0 % Basophils Percent Auto 0.4 0.2-2.0 % Immature Granulocytes Pct Auto 0.5 0.0-0.5 % Neutrophils Absolute Auto 8.8 1.4-6.5 10 3/uL Lymphocytes Absolute Auto 3.5 1.2-3.8 10 3/uL Monocytes Absolute Auto 0.7 0.3-0.8 10 3/uL Eosinophils Absolute Auto 0.3 0.0-0.7 10 3/uL Basophils Absolute Auto 0.1 0.0-0.1 10 3/uL Immature Granulocytes Abs Auto 0.07 0.00-0.03 10 3/uL Performing Lab: see note ML - [facility] LACTATE or LACTIC ACID Reviewed date:12/24/2024 01:12:54 PM Interpretation: Performing Lab: Notes/Report: [facility] [place] [facility] , Lactate/Lactic Acid 1.8 0.4-2.0 mmol/L Performing Lab: see note ML - [facility] PROF 14(COMP METB) Reviewed date:12/24/2024 01:12:54 PM Interpretation: Performing Lab: Notes/Report: [facility] [place] [facility] , Sodium 132 136-145 mmol/L Potassium 4.7 3.5-5.1 mmol/L Chloride 97 98-107 mmol/L Carbon Dioxide 22.6 21.0-32.0 mmol/L Anion Gap 17.1 Glucose 508 74-106 mg/dL RESULTS CALLED TO KIZZY FLOR RN at 2242 Blood Urea Nitrogen 28.0 7.0-18.0 mg/dL Creatinine 1.66 0.70-1.30 mg/dL Estimated GFR ( Denise 51 >=60 mL/mi n/1.73m 2 Estimated GFR (Non- Vansesa 42 >=60 mL/mi n/1.73m 2 BUN Creatinine Ratio 16.9 Calcium 9.1 8.5-10.1 mg/dL Bilirubin Total 0.4 0.2-1.0 mg/dL Aspartate Amino Transferase 56 15-37 U/L Alanine Aminotransferase 180 16-63 U/L Alkaline Phosphatase 149 46-116 U/L Total Protein 7.4 6.4-8.2 g/dL Albumin Level 3.4 3.4-5.0 g/dL Globulin 4.0 Albumin Globulin Ratio 0.9 Performing Lab: see note ML - [facility] Acetone Reviewed date:12/24/2024 01:12:54 PM Interpretation: Performing Lab: Notes/Report: [facility] [place] [facility] , Acetone NEGATIVE NEGATIVE Performing Lab: see note ML - [facility] UA Micro, reflex to culture Reviewed date:12/24/2024 01:12:54 PM Interpretation: Performing Lab: Notes/Report: [facility] [place] [facility] , Color Urine LT. YELLOW YELLOW Clarity Urine CLEAR CLEAR Specific [place] Urine 1.010 1.005-1.025 pH Urine 5.5 5.0-9.0 Protein Urine NEGATIVE NEG/TRACE mg/dL Glucose Urine UA >=1000 NEGATIVE mg/dL Bilirubin Urine NEGATIVE NEGATIVE Ketones Urine TRACE NEGATIVE mg/dL Blood Urine NEGATIVE NEGATIVE Nitrite Urine NEGATIVE NEGATIVE Urobilinogen Urine 0.2 0.2-1.0 EU/dL Leukocyte Esterase Urine NEGATIVE NEGATIVE WBC Urine 2-5 NONE SEEN #/HPF RBC Urine 0-2 0-2 #/HPF Bacteria Urine NONE SEEN NONE SEEN #/HPF Mucus Urine NONE SEEN NONE SEEN Squamous Epithelial Cell Urine NONE SEEN NONE/RARE #/LPF Crystals Seen? None Seen None Seen #/HPF Cast Seen? NONE SEEN NONE SEEN #/LPF Urine Culture Indicated NO Performing Lab: see note ML - [facility] Reason For Referral No Information Medications Medication SIG (Take, Route, Frequency, Duration) [...] Question Answer Notes Patient is a nonsmoker Alcohol Screen (Audit-C) Question Answer Notes Did you have a drink containing alcohol in the p ast year? No Points 0 Interpretation Negative AUDIT-C (Standard) Question Answer Notes Did you have a drink containing alcohol in the p ast year? No Points 0 Interpretation Negative Problems Problem Type SNOMED Code ICD Code Onset Dates Problem Status W/U Status Risk Notes Problem Hypertension (28931310) Hypertension (I10) Active confirmed Problem Anxiety (92382537) Anxiety (F41.9) Active confi rmed Problem Depression (964856424) Depression (F32.9) Active confirmed Problem Hypertriglyceridemia (925919452) Hypertriglyceridemia (E78.1) Active confirmed Problem Well adult (246049091) Well adult (Z00.00) Active confirmed Problem Cholelithiasis (442581483) Cholelithiases (K80.20) Active confirmed Problem Paresthesia (57242279) Paresthesia (R20.2) Active confirmed Problem Footdrop (0240598) Foot drop (M21.379) Active c onfirmed Problem Internal derangement of knee (98488542) Internal derangement of knee (M23.90) Active confirmed Problem Type II diabetes mellitus without complication (083597889) Diabetes (E11.9) Active confirmed Vital Signs Blood pressure diastolic 92 mm Hg 12/25/2024 Height 70 in 12/25/2024 Blood pressure systolic 154 mm Hg 12/25/2024 Weight 302.8 lbs 12/25/2024 BMI 43.44 kg/m2 12/25/2024 Encounters Encounter Location Date Provider Diagnosis [facility] [address] [place] [address] 01/12/2024 Constantin Monsivais Well adult Z00.00 [facility] [address] [place] [address] 12/25/2024 Constantin Monsivais Hypertension I10 ; Diabetes E11.9 and Well adult Z00.00 [facility] [address] [place] [address] 01/04/2024 Constantin Monsivais [facility] [address] [place] [address] 01/19/2024 Constantin Monsivais [facility] [address] [facility] [place] [address] 01/20/2024 Constantin henry [facility] [address] [place] [place] [address] 01/26/2024 Constantin Monsivais [facility] [address] [facility] [place] [address] 02/04/2024 Constantin Monsivais [facility] [address] [place] [address] 04/17/2024 Constantin Monsivais Well adult Z00.00 [facility] [address] [place] [address] 12/24/2024 Constantin Monsivais Assessments Encounter Date Diagnosis (ICD Code) Assessment Notes Treatment Notes Treatment Clinical Notes Section Notes 01/12/2024 Well adult (ICD-10 - Z00.00) sdisaussed checking sugaromore often - calling back next week with list of sugars 12/25/2024 Hypertension (ICD-10 - I10) 12/25/2024 Diabetes (ICD-10 - E11.9) 04/17/2024 Well adult (ICD-10 - Z00.00) 12/25/2024 Well adult (ICD-10 - Z00.00) Plan Of Treatment Pending Test Test Name Order Date HEMOGLOBIN A1C (GLYCO) 12/25/2024 LIPID PANEL (CHOL/TRIG/HDL/LDL) 12/26/19 25 URIC ACID 12/25/2024 STOOL OCCULT BLOOD 12/25/2024 THYROID PANEL (T4/TSH/FREE T3) 5 PSA, SCREENING 12/25/2024 CMP (COMP MET JIMENEZ) w/eGFR CKD-EPI 2024 CBC WITH DIFF 12/25/2024 Insurance Providers Payer Name Payer Address Payer Phone Subscriber Number Group Number Insured Name Patient Relationship to Insured Coverage Start Date Coverage End Date MMO [employer] [address] [place] [address] [id number] Jil Walker Self - patient is the insured Medical (General) History Medical History History ICD Code Depression F32.9 Anxiety F41.9 Hypertension I10 Hypercholesteremia E78.00 Chest pain R07.9 Hypertriglyceridemia E78.1 L3-4 disc protusion foot drop Surgical History Surgery Date(Month/Year) hemilaminectomy with partial facetectomy left and right choleystectomy 2021 Hospitalization History Reason Date(Month/Year) see above
[2024-12-26 08:09] LABS: Hematocrit 47.1 % (42.0-54.0); Hemoglobin 15.5 g/dL (14.0-18.0); Immature Granulocytes Abs Auto 0.05 10^3/uL (0.00-0.03); Immature Granulocytes Pct Auto 0.5 % (0.0-0.5); Lymphocytes Absolute Auto 2.6 10^3/uL (1.2-3.8); Mean Corpuscular HGB Conc 32.9 g/dL (29.9-35.2); Mean Corpuscular Hemoglobin 28.2 pg (25.9-34.0); Mean Corpuscular Volume 85.6 fL (80.0-94.0); Platelet Count 227 10^3/uL (150-450); Red Blood Count 5.50 10^6/uL (4.70-6.10); White Blood Count 9.2 10^3/uL (4.0-11.0)
[2024-12-26 08:52] LABS: Alanine Aminotransferase 112 U/L (16-63); Albumin Globulin Ratio 0.9; Albumin Level 3.5 g/dL (3.4-5.0); Alkaline Phosphatase 126 U/L (46-116); Anion Gap 15.3; Aspartate Amino Transferase 49 U/L (15-37); Blood Urea Nitrogen 16.0 mg/dL (7.0-18.0); Calcium 8.9 mg/dL (8.5-10.1); Carbon Dioxide 24.1 mmol/L (21.0-32.0); Chloride 102 mmol/L (98-107); Cholesterol 241 mg/dL (<=200); Estimated GFR (African America >60 (>=60 mL/min/1.73m^2); Estimated GFR (Non-African Ame >60 (>=60 mL/min/1.73m^2); Free T3 1.93 pg/mL (2.18-3.98); Globulin 4.1 g/dL; Glucose 297 mg/dL (74-106); HDL Cholesterol 42 mg/dL (40-60); Potassium 4.4 mmol/L (3.5-5.1); Sodium 137 mmol/L (136-145); Thyroid Stimulating Hormone 2.312 uIU/mL (0.358-3.740); Total Protein 7.6 g/dL (6.4-8.2); Triglycerides 228 mg/dL (<=150); Uric Acid 6.3 mg/dL (3.5-7.2); VLDL CHOLESTEROL 45.6 mg/dL
== END 2024-12-26 07:43 | disposition home or self-care (01) ==
LOC: LAB 07:42
PROVIDERS: PCP Family Medicine; Visit Provider Family Medicine
DX: Z00.00 Encounter for general adult medical examination without abnormal findings (principal); Z12.5 Encounter for screening for malignant neoplasm of prostate; E78.00 Pure hypercholesterolemia, unspecified
CPT/HCPCS: 36415; 80053; 80061; 82248; 84436; 84443; 84481; 84550; 85025; G0103

== ENCOUNTER 2024-12-27 08:55 | Outpatient (OUT) | payer OTHER, SELFPAY ==
--- OUTSIDE RECORDS SUMMARY | 2024-12-25 04:45 | XMS_ITS ---
Author Organization [facility] in [place] Address [address] [place] [address] Care Team Providers Care Acoustical Tile Drill Press Operator Name Role Phone Constantin Monsivais Primary Care Provider [phone] Allergies No Known Allergies REASON FOR [...] 12/25/2024 Encounters Encounter Location Date Provider Diagnosis [facility] [address] [place] [address] 12/25/2024 Constantin Monsivais Hypertension I10 ; Diabetes [...] Notes * Jil WALKERDOB:1960 (64 yo M)Acc No.[id number]:12/25/2024 UNLOCKED PROGRESS NOTE Progress Note Patient: Jil ROLLINS Provider: Zafar Monsivais ([facility])MD :1960 A ge:64 Y S ex:Male Date:12/25/2024 Address:[address] [place], [place] [id number] Check In:08:25 AM ESTCheck O ut:09:10 AM [...] WITH DIFF * Preventive Medicine: Screenings/Counseling: B PR ACTION PLAN Above Normal BMI Follow-up D ietary management education, guidance, and counseling See treatment section of progress note for complete details of management plan. * * Electronic signature of Constantin Monsivais MD, [id number] on 12/27/2024 at 08:58 AM EDT Sign off status: Pending Visit Status: C HK (Check Out) * Provider: Zafar Monsivais ([facility])MD Date: 12/25/2024 Generated for Printi ng/Fafrannyg/eTransmitting on: 0 12/27/2024 08:58 AM EDT History and Physical Notes * [...]
--- NOTE | 2024-12-27 08:58 | US_ITS ---
The [address] [address] Patient Name: HUAN DIAZ MRN: [id number] date: 1960 Sex: M Assigned Patient Location: [place] Current Patient Location: Accession/Order Number: [id number] Exam Date: 12/27/2024 08:59 Report Date: 12/27/2024 10:17 At the request of: JAIRO GERONIMO MD Procedure: US abdomen complete COMPLETE ABDOMINAL ULTRASOUND CLINICAL HISTORY: Fatty Liver K76.0. Prior cholecystectomy. COMPARISON: CT 12/29/2021 Evaluation is limited by body habitus and bowel gas. The gallbladder is surgically absent. No intra- or extrahepatic biliary dilatation is evident. The common duct measures re-4 mm. The liver is increased in echogenicity and this may be secondary to fatty infiltration. No focal intrahepatic masses are seen. There is appropriate hepatopetal flow within the main portal vein. The pancreas is obscured by bowel gas. The right kidney measures 12.1 cm and the left 11.1 cm in craniocaudal dimension. No hydronephrosis is identified. There is a small left parapelvic renal cyst measuring 18 x 16 x 13 mm. The spleen is normal in size and echogenicity measuring 11.9 cm in craniocaudal dimension. The abdominal aorta is normal caliber. The IVC is not well seen. There is no ascites. US/US abdomen complete IMPRESSION: SUSPECTED FATTY LIVER. TINY PARAPELVIC LEFT RENAL CYST. NO OTHER ACUTE FINDINGS. Impression dictated by: Lida Elizalde M.D. 12/27/2024 10:17 AM Dictation Location: [address] [place] [address] Electronically authenticated by: [id number] Date: 12/27/2024 10:17
--- OUTSIDE RECORDS SUMMARY | 2024-12-27 08:59 | XMS_ITS | Patient Health Record ---
Author Organization [facility] in [place] Address [address] [place] [address] Care Team Providers Care Sales Service Technician Name Role Phone Constantin Monsivais Primary Care Provider [phone] Allergies No Known Allergies Results Component Value Reference Range Notes BILIRUBIN CONJUGATED (DIRECT ) Reviewed date:12/26/2024 05:32:54 PM Interpretation: Performing Lab: Notes/Report: [facility] , Bilirubin Direct 0.1 0.0-0.2 mg/dL Performing Lab: see note ML - [facility] LB FREE T3 Reviewed date:12/26/2024 09:11:50 AM Interpretation: Performing Lab: Notes/Report: [facility] , Free T3 1.93 2.18-3.98 pg/mL Performing Lab: see note ML - [facility] LB LIPID PROFILE Reviewed date:12/26/2024 09:11:50 AM Interpretation: Performing Lab: Notes/Report: [facility] , Triglycerides 228 <=150 mg/dL Cholesterol 241 <=200 mg/dL HDL Cholesterol 42 40-60 mg/dL > or =60 mg/dl - LOW CARDIOVASCULAR RISK <40 mg/dl - HIGH CARDIOVASCULAR RISK LDL Cholesterol Calculated 154.0 >190 mg/dl VERY HIGH 100-129 mg/dl NEAR OR ABOVE OPTIMAL 160-189 mg/dl HIGH <100 mg/dl OPTIMAL 130-159 mg/dl BORDERLINE HIGH VLDL CHOLESTEROL 45.6 Chol HDL Ratio 5.7 7.1 - 11.0 MODERATE RISK 4.4 - 7.1 AVERAGE RISK >11.0 HIGH RISK 3.3 - 4.4 LOW RISK Performing Lab: see note ML - [facility] LB PROF 14(COMP METB) Reviewed date:12/26/2024 09:11:50 AM Interpretation: Performing Lab: Notes/Report: [facility] , Sodium 137 136-145 mmol/L Potassium 4.4 3.5-5.1 mmol/L Chloride 102 98-107 mmol/L Carbon Dioxide 24.1 21.0-32.0 mmol/L Anion Gap 15.3 Glucose 297 74-106 mg/dL Blood Urea Nitrogen 16.0 7.0-18.0 mg/dL Creatinine 1.16 0.70-1.30 mg/dL Estimated GFR ( Denise >60 >=60 mL/min/1.73m 2 Estimated GFR (Non- Vanessa >60 >=60 mL/min/1.73m 2 BUN Creatinine Ratio 13.8 Calcium 8.9 8.5-10.1 mg/dL Bilirubin Total 0.6 0.2-1.0 mg/dL Aspartate Amino Transferase 49 15-37 U/L Alanine Aminotransferase 112 16-63 U/L Alkaline Phosphatase 126 46-116 U/L Total Protein 7.6 6.4-8.2 g/dL Albumin Level 3.5 3.4-5.0 g/dL Globulin 4.1 Albumin Globulin Ratio 0.9 Performing Lab: see note ML - [facility] LB PSA SCREENING Reviewed date:12/26/2024 05:32:54 PM Interpretation: Performing Lab: Notes/Report: [facility] , Prostate Specific Antigen Scrn 2.35 <=4.00 ng/mL Performing Lab: see note ML - [facility] LB T4 Reviewed date:12/26/2024 09:11:50 AM Interpretation: Performing Lab: Notes/Report: [facility] , T4 Thyroxine 7.80 4.50-12.10 ug/dL Performing Lab: see note ML - [facility] LB TSH Reviewed date:12/26/2024 09:11:50 AM Interpretation: Performing Lab: Notes/Report: [facility] , Thyroid Stimulating Hormone 2.312 0.358-3.740 u IU/mL Performing Lab: see note ML - [facility] LB URIC ACID SERUM Reviewed date:12/26/2024 09:11:50 AM Interpretation: Performing Lab: Notes/Report: [facility] , Uric Acid 6.3 3.5-7.2 mg/dL Performing Lab: see note ML - [facility] LB CBC AUTO DIFF Reviewed date:12/26/2024 09:11:50 AM Interpretation: Performing Lab: Notes/Report: [facility] , White Blood Count 9.2 4.0-11.0 10 3/uL Red Blood Count 5.50 4.70-6.10 10 6/uL Hemoglobin 15.5 14.0-18.0 g/dL Hematocrit 47.1 42.0-54.0 % Mean Corpuscular Volume 85.6 80.0-94.0 fL Mean Corpuscular Hemoglobin 28.2 25.9-34.0 pg Mean Corpuscular HGB Conc 32.9 29.9-35.2 g/dL Red Cell Distribution Width 13.5 11.0-15.0 % Platelet Count 227 150-450 10 3/uL Mean Platelet Volume 12.3 9.5-13.5 fL Neutrophils Percent Auto 59.6 43.0-75.0 % Lymphocytes Percent Auto 28.2 20.5-60.0 % Monocytes Percent Auto 6.9 1.7-12.0 % Eosinophils Percent Auto 4.1 0.9-7.0 % Basophils Percent Auto 0.7 0.2-2.0 % Immature Granulocytes Pct Auto 0.5 0.0-0.5 % Neutrophils Absolute Auto 5.5 1.4-6.5 10 3/uL Lymphocytes Absolute Auto 2.6 1.2-3.8 10 3/uL Monocytes Absolute Auto 0.6 0.3-0.8 10 3/uL Eosinophils Absolute Auto 0.4 0.0-0.7 10 3/uL Basophils Absolute Auto 0.1 0.0-0.1 10 3/uL Immature Granulocytes Abs Auto 0.05 0.00-0.03 10 3/uL Performing Lab: see note ML - [facility] LB UA Micro, reflex to culture Reviewed date:12/24/2024 01:12:54 PM Interpretation: Performing Lab: Notes/Report: [facility] , Color Urine LT. YELLOW YELLOW Clarity Urine CLEAR CLEAR Specific [place] Urine 1.010 1.005-1.025 pH Urine 5.5 5.0-9.0 [...] NO Performing Lab: see note ML - [facility] Acetone Reviewed date:12/24/2024 01:12:54 PM Interpretation: Performing Lab: Notes/Report: [facility] , Acetone NEGATIVE NEGATIVE Performing Lab: see note [facility] PROF 14(COMP METB) Reviewed date:12/24/2024 01:12:54 PM Interpretation: Performing Lab: Notes/Report: [facility] , Sodium 132 136-145 mmol/L Potassium 4.7 3.5-5.1 mmol/L Chloride 97 98-107 mmol/L Carbon Dioxide 22.6 21.0-32.0 mmol/L Anion Gap 17.1 Glucose 508 74-106 mg/dL RESULTS CALLED TO KIZZY FLOR RN at 2242 Blood Urea Nitrogen 28.0 7.0-18.0 mg/dL Creatinine 1.66 0.70-1.30 mg/dL Estimated GFR ( Denise 51 >=60 mL/min/1.73m 2 Estimated GFR (Non- Vanessa 42 >=60 mL/min/1.73m 2 BUN Creatinine Ratio 16.9 Calcium 9.1 8.5-10.1 mg/dL Bilirubin Total 0.4 0.2-1.0 mg/dL Aspartate Amino Transferase 56 15-37 U/L Alanine Aminotransferase 180 16-63 U/L Alkaline Phosphatase 149 46-116 U/L Total Protein 7.4 6.4-8.2 g/dL Albumin Level 3.4 3.4-5.0 g/dL Globulin 4.0 Albumin Globulin Ratio 0.9 Performing Lab: see note - [facility] LB LACTATE or LACTIC ACID Reviewed date:12/24/2024 01:12:54 PM Interpretation: Performing Lab: Notes/Report: [facility] , Lactate/Lactic Acid 1.8 0.4-2.0 mmol/L Performing Lab: see note ML - [facility] LB CBC AUTO DIFF Reviewed date:12/24/2024 01:12:54 PM Interpretation: Performing Lab: Notes/Report: [facility] , White Blood Count 13.4 4.0-11.0 [...] 3/uL Performing Lab: see note ML - [facility] LB Reason For Referral No Information Medications Medication SIG (Take, Route, Frequency, Duration) Notes Start Date End Date Status Glimepiride 2 MG 1 tablet with breakf ast or the first main meal of the day Orally Once a day; Duration: 30 days 12/25/2024 Active Simvastatin 20 MG 1 tablet in the even ing Orally Once a day; Duration: 30 days 12/26/2024 Active metFORMIN HCl 500 MG 1 tablet [...] Status W/U Status Risk Notes Problem Hypertension (57977701) Hypertension (I10) Active confirmed Problem Anxiety (23548181) Anxiety (F41.9) Active confi rmed Problem Depression (055342573) Depression (F32.9) Active confirmed Problem Hypertriglyceridemia (630516945) Hypertriglyceridemia (E78.1) Active confirmed Problem Well adult (324704385) Well adult (Z00.00) Active confirmed Problem Cholelithiasis (361296441) Cholelithiases (K80.20) Active confirmed Problem Paresthesia (74205499) Paresthesia (R20.2) Active confirmed Problem Footdrop (3592398) Foot drop (M21.379) Active c onfirmed Problem Internal derangement of knee (88270635) Internal derangement of knee (M23.90) Active confirmed Problem High cholesterol (04198767) High cholesterol (E78.00) Active confirmed Problem Type II diabetes mellitus without complication (150705803) Diabetes (E11.9) Active confirmed Vital Signs Blood pressure diastolic 92 mm Hg 12/25/2024 Height 70 in 12/25/2024 Blood pressure systolic 154 mm Hg 12/25/2024 Weight 302.8 lbs 12/25/2024 BMI 43.44 kg/m2 12/25/2024 Encounters Encounter Location Date Provider Diagnosis [facility] [address] [facility] [place] [place] [address] 01/04/2024 Constantin Monsivais [facility] [address] [place] [facility] [place] [address] 01/19/2024 Constantin Monsivais [facility] [address] [place] [place] [address] 12/26/2024 Constantin Monsivais [facility] [address] [place] [place] [address] 01/20/2024 Constantin Monsivais [facility] [address] [place] [place] [address] 01/26/2024 Constantin Monsivais [facility] [address] [place] [place] [address] 02/04/2024 Constantin henry [facility] [address] [place] [place] [place] [address] 04/17/2024 Constantin Monsivais Well adult Z00.00 [facility] [address] [place] [place] [address] 12/24/2024 Constantin Monsivais [facility] [address] [place] [place] [address] 12/26/2024 Constantin Monsivais High cholesterol E78 .00 [facility] [address] [place] [place] [address] 12/25/2024 Constantin Monsivais Hypertension I10 ; Diabetes E11.9 and Well adult Z00.00 [facility] [address] [place] [address] 01/12/2024 Constantin Monsivais Well adult Z00.00 Assessments Encounter Date Diagnosis (ICD Code) Assessment Notes Treatment Notes Treatment Clinical Notes Section Notes 01/12/2024 Well adult (ICD-10 - Z00.00) sdisaussed checking sugaromore often - calling back next week with list of sugars 12/25/2024 Hypertension (ICD-10 - I10) 12/25/2024 Diabetes (ICD-10 - E11.9) 04/17/2024 Well adult (ICD-10 - Z00.00) 12/26/2024 High cholesterol (ICD-10 - E78.00) 12/25/2024 Well adult (ICD-10 - Z00.00) Plan Of Treatment Pending Test Test Name Order Date HEMOGLOBIN A1C (GLYCO) 12/25/2024 LIPID PANEL (CHOL/TRIG/HDL/LDL) 12/26/19 25 URIC ACID 12/25/2024 STOOL OCCULT BLOOD 12/25/2024 LIVER PROFILE 12/26/2024 THYROID PANEL (T4/TSH/FREE T3) 5 PSA, SCREENING 12/25/2024 Lipid Panel 12/26/2024 US abdomen complete 12/26/2024 CMP (COMP MET JIMENEZ) w/eGFR CKD-EPI 2024 CBC WITH DIFF 12/25/2024 Insurance Providers Payer Name Payer Address Payer Phone Subscriber Number Group Number Insured Name Patient Relationship to Insured Coverage Start Date Coverage End Date MMO [employer] [address] [place] [address] [id number] Jil Walker Self - patient is the insured Medical (General) History Medical History History ICD Code Depression F32.9 Anxiety F41.9 Hypertension I10 Hypercholesteremia E78.00 Chest pain R07.9 Hypertriglyceridemia E78.1 L3-4 disc protusion foot drop Surgical History Surgery Date(Month/Year) hemilaminectomy with partial facetectomy left and right choleystectomy 2021 Hospitalization History Reason Date(Month/Year) see above
--- OUTSIDE RECORDS SUMMARY | 2024-12-27 09:00 | XMS_ITS | CCD ---
Author Organization [facility] Care Team Providers Care Leadership Development Manager Name Role Phone DARIUS, DR CAVAZOS [...] Medication Allergies] Propensity to adverse reactions (disorder) [facility] Repository Medications Current Medications Medication Drug [...] 12-29-2021 Chronic Other aftercare (1 source) Other halfway (current) drug therapy; Translations: [OTH ALF CURRENT DRUG THERAPY] Onset: 12-22-2021 Episodic Other [...] MATTA, CHIDI Jc Only if needed [address] [place] [address]- Additional Instructions: Problem List/Past Medical [...] - Not Given Patient Refuses Normal [facility] Comment on above: Result Comment: Elec tronically Signed By: DARIUS MATTA, Macy Jeffery\Date and Time Signed: 02/18/22 15:24 EST Pathology Noteon 02-16-2022 Pathology Note [id number]: 127 Normal [facility] Operative Reporton Operative Report [id number]: 127 Normal [facility] Lab Reportson 02-06-2022 Lab Reports [id number]: 127 Normal [facility]11 SARS-CoV-2 (COVID-19) RNA RONALD+probe Ql (Unsp spec) Not detected Normal NOT DETECTED [facility] Comment on above: Result Comment: This test is not yet approved or cleared by the [place] FDA. When there are no FDA-approved or cleared tests available, and other criteria are met, FDA can make tests available under an emergency access mechanism called an Emergency Use Authorization (EUA). The EUA for this test is supported by the [place] of Health and Human Service's (HHS's) declaration [...] SARS-CoV-2. Performed By: #### C VDTB #### [facility] [address] [place] [address] Dr. Chinedu Vitale GLYCOHEMOGLOBIN A1Con 2021 ADA RECOMMENDATION SEE BELOW Normal [facility] Comment on above: Result Comment: ADA RECOMMENDED LIMIT 4.0 - 6.0 ADA THERAPEUTIC TARGET < 7.0 ACTION SUGGESTED > 7.0 Performed By: #### A 1C #### [facility] [address] [place] [address] Dr. Chinedu Vitale Glucose [Mass/Vol] 126 mg/dL Normal [facility] Comment on above: Performed By: #### A 1C #### [facility] [address] [address] [address] Chinedu Vitale HbA1c (Bld) [Mass fraction] 6.0 % Normal 4.5-6.2 [facility] [place] [facility] Comment on above: Performed By: #### A 1C #### [facility] [address] [place] [address] Dr. Chinedu Vitale Lab Reportson 2022 Lab Reports [id number]: 127 Normal [facility] PROF CHEM 8 (BAS METB)on Anion gap [Moles/Vol] 10.1 mmol/L Normal [facility] [place] [facility] Comment on above: Performed By: #### B MP #### [facility] [address] [place] [address] Dr. Chinedu Vitale Calcium [Mass/Vol] 9.1 mg/dL Normal 8.5-10.1 [facility] Comment on above: Performed By: #### B MP #### [facility] [address] [place] [address] Dr. Chinedu Vitale Chloride [Moles/Vol] 104 mmol/L Normal 98-107 [facility] [place] [facility] Comment on above: Performed By: #### B MP #### [facility] [address] [place] [address] Dr. Chinedu Vitale CO2 [Moles/Vol] 28.2 mmol/L Normal 21.0-32.0 [facility] Comment on above: Performed By: #### B MP #### [facility] [address] [place] [address] Dr. Chinedu Vitale Creatinine [Mass/Vol] 1.08 mg/dL Normal 0.70-1.30 [facility] [place] [facility] Comment on above: Performed By: #### B MP #### [facility] [address] [address] [address] Chinedu Vitale EGFR-AF CYMRO >60 Normal >=60 [facility] Comment on above: Performed By: #### B MP #### [facility] [id number] Chinedu Vitale EGFR-NON AF CYMRO >60 Normal >=60 [facility] [place] [facility] Comment on above: Performed By: #### B MP #### [facility] [address] [address] [address] Chinedu Vitale Glucose [Mass/Vol] 105 mg/dL Normal 74-106 [facility] Comment on above: Performed By: #### B MP #### [facility] [address] [address] [address] Chinedu Vitale Potassium [Moles/Vol] 4.3 mmol/L Normal 3.5-5.1 [facility] [place] [facility] Comment on above: Performed By: #### B MP #### [facility] [address] [address] [address] Chinedu Vitale Sodium [Moles/Vol] 138 mmol/L Normal 136-145 [facility] Comment on above: Performed By: #### B MP #### [facility] [address] [address] [address] Chinedu Vitale Urea nitrogen [Mass/Vol] 17.0 mg/dL Normal 7.0-18.0 [facility] [place] [facility] Comment on above: Performed By: #### B MP #### [facility] [address] [address] [address] Chinedu Vitale Urea nitrogen/Creatinine [Mass ratio] 15.7 mg/mg Normal [facility] [place] [facility] Comment on above: Performed By: #### B MP #### [facility] [address] [address] [address] Chinedu Vitale Consent for Procedure/Surger yon 01-07-2022 Consent for Procedure/Surgery [id number]: 127 Normal [facility] Ambulatory Visit Summaryon 0 01-06-2022 Ambulatory [...] Paresthesia Pure hypercholesterolemia Right foot drop Normal [facility] RAD - CT Reporton 12-25-2021 RAD - CT Report [id number]: 127 Normal [facility] ED Note-Physicianon 12-24-19 22 ED Note-Physician [id number]: 127 Normal [facility] Physician Referralon 022 Physician Referral [id number]: 127 Normal [facility] CBC AUTO DIFFon 12-19-2021 BASO # 0.1 103/ul Normal 0.0-0.1 [facility] Comment on above: Performed By: #### C BC ####[facility] [address] [id number]. Chinedu Vitale Basophils/100 WBC (Bld) 0.5 % Normal 0.2-2.0 [facility] Comment on above: Performed By: #### C BC ####[facility] [address] [id number]. Chinedu Vitale EO # 0.5 103/ul Normal 0.0-0.7 [facility] Comment on above: Performed By: #### C BC ####[facility] [address] [place], [place] [id number]. Chinedu Vitale Eosinophils/100 WBC (Bld) 4.1 % Normal 0.9-7.0 [facility] [place] [facility] Comment on above: Performed By: #### C BC ####[facility] [address] [place], [place] [address]Dr. Chinedu Vitale Erythrocyte distribution width (RBC) [Ratio] 14.4 % Normal 11.0-15.0 [facility] [place] [facility] Comment on above: Performed By: #### C BC ####[facility] [address] [place], [place] [address]Dr. Chinedu Vitale Hematocrit (Bld) [Volume fraction] 46.9 % Normal 42.0-54.0 [facility] [place] [facility] Comment on above: Performed By: #### C BC ####[facility] [address] [place], [place] [id number]. Chinedu Vitale Hemoglobin (Bld) [Mass/Vol] 15.2 g/dL Normal 14.0-18.0 [facility] Comment on above: Performed By: #### C BC ####[facility] [address] [place], [place] [address]Dr. Chinedu Vitale IG # 0.04 10e3/ul Critically high 0.00-0.03 [facility] [place] Comment on above: Performed By: #### C BC ####[facility] [address] [place], [place] [address]Dr. Chinedu Vitale IG % 0.4 % Normal 0.0-0.5 [facility] [place] [facility] Comment on above: Performed By: #### C BC ####[facility] [address] [id number]. Chinedu Vitale LYMPH # 3.5 103/ul Normal 1.2-3.8 [facility] Comment on above: Performed By: #### C BC ####[facility] [address] [address]Dr. Chinedu Vitale Lymphocytes/100 WBC (Bld) 31.6 % Normal 20.5-60.0 [facility] [place] [facility] Comment on above: Performed By: #### C BC ####[facility] [address] [id number]. Chineud Vitale MANUAL DIFF REQ NO Normal [facility] Comment on above: Performed By: #### C BC ####[facility] [address] [id number]. Chinedu Vitale MCH (RBC) [Entitic mass] 28.6 pg Normal 25.9-34.0 [facility] [place] [facility] Comment on above: Performed By: #### C BC ####[facility] [address] [id number]. Antonettemoncho Vitale MCHC (RBC) [Mass/Vol] 32.4 g/dL Normal 29.9-35.2 [facility] [place] [facility] Comment on above: Performed By: #### C BC ####[facility] [address] [id number] Vitale MCV (RBC) [Entitic vol] 88.3 fL Normal 80.0-94.0 [facility] [place] [facility] Comment on above: Performed By: #### C BC ####[facility] [address] [id number] Vitale MONO # 0.9 103/ul Critically high 0.3-0.8 [facility] Comment on above: Performed By: #### C BC ####[facility] [address] [address]DrBarb Vitale Monocytes/100 WBC (Bld) 7.9 % Normal 1.7-12.0 [facility] Comment on above: Performed By: #### C BC ####[facility] [address] [id number]. Chinedu Vitale NEUT # 6.2 103/ul Normal 1.4-6.5 [facility] [place] [facility] Comment on above: Performed By: #### C BC ####[facility] [address] [address]Dr. Chinedu Vitale Neutrophils/100 WBC (Bld) 55.5 % Normal 43.0-75.0 [facility] [place] [facility] Comment on above: Performed By: #### C BC ####[facility] [address] [address]Dr. Chinedu Vitale Platelet mean volume (Bld) [Entitic vol] 11.6 fL Normal 9.5-13.5 [facility] [place] [facility] Comment on above: Performed By: #### C BC ####[facility] [address] [address]Dr. Chinedu Vitale PLT 241 103/ul Normal 150-450 [facility] Comment on above: Performed By: #### C BC ####[facility] [address] [id number]. Chinedu Vitale RBC 5.31 106/ul Normal 4.70-6.10 [facility] Comment on above: Performed By: #### C BC ####[facility] [address] [address]Dr. Chinedu Vitale WBC 11.1 103/ul Critically high 4.0-11.[address] [facility] Comment on above: Performed By: #### C BC ####[facility] [address] [id number]. Chinedu Vitale CT ABD/PELVIS WO CONon 12-19 [...] by: PAOLO PATINO Date: 2021-12-19 01:47 Normal [facility] [place] [facility] LIPASEon 12-19-2021 Lipase [Catalytic activity/Vol] 127.0 U/L Normal 73.0-393.0 [facility] [place] [facility] Comment on above: Performed By: #### L IPA, CMP, HSTROPN #### [facility] [address] [place], [place] [address] Dr. Chinedu Vitale PROF 14(COMP METB)on 022 Albumin [Mass/Vol] 3.9 g/dL Normal 3.4-5.0 [facility] Comment on above: Performed By: #### L IPA, CMP, HSTROPN #### [facility] [address] [place], [place] [address] Dr. Chinedu Vitale Albumin/Globulin [Mass ratio] 1.2 {ratio} Normal [facility] [place] [facility] Comment on above: Performed By: #### L IPA, CMP, HSTROPN #### [facility] [address] [address] [address] Chinedu Vitale ALP [Catalytic activity/Vol] 89 U/L Normal 46-116 [facility] [place] [facility] Comment on above: Performed By: #### L IPA, CMP, HSTROPN #### [facility] [address] [address] [address] Chinedu Vitale ALT [Catalytic activity/Vol] 21 U/L Normal 16-63 [facility] [place] [facility] Comment on above: Performed By: #### L IPA, CMP, HSTROPN #### [facility] [address] [address] [address] Chinedu Vitale Anion gap [Moles/Vol] 9.7 mmol/L Normal [facility] [place] [facility] Comment on above: Performed By: #### L IPA, CMP, HSTROPN #### [facility] [address] [place] [address] Dr. Chinedu Vitale AST [Catalytic activity/Vol] 13 U/L Critically low 15-37 [facility] [place] [facility] Comment on above: Performed By: #### L IPA, CMP, HSTROPN #### [facility] [address] [place] [address] Dr. Chinedu Vitale Bilirubin [Mass/Vol] 0.3 mg/dL Normal 0.2-1.0 [facility] [place] [facility] Comment on above: Performed By: #### L IPA, CMP, HSTROPN #### [facility] [address] [address] [address] Chinedu Vitale Calcium [Mass/Vol] 8.8 mg/dL Normal 8.5-10.1 [facility] Comment on above: Performed By: #### L IPA, CMP, HSTROPN #### [facility] [address] [place] [address] Dr. Chinedu Vitale Chloride [Moles/Vol] 104 mmol/L Normal 98-107 [facility] [place] [facility] Comment on above: Performed By: #### L IPA, CMP, HSTROPN #### [facility] [address] [place], [place] [id number] Dr. Chinedu Vitale CO2 [Moles/Vol] 26.4 mmol/L Normal 21.0-32.0 [facility] Comment on above: Performed By: #### L IPA, CMP, HSTROPN #### [facility] [address] [address] [address] Chinedu Vitale Creatinine [Mass/Vol] 1.12 mg/dL Normal 0.70-1.30 [facility] [place] [facility] Comment on above: Performed By: #### L IPA, CMP, HSTROPN #### [facility] [address] [address] [address] Chinedu Vitale EGFR-AF CYMRO >60 Normal >=60 [facility] Comment on above: Performed By: #### L IPA, CMP, HSTROPN #### [facility] [address] [place] [address] Dr. Chinedu Vitale EGFR-NON AF CYMRO >60 Normal >=60 [facility] [place] [facility] Comment on above: Performed By: #### L IPA, CMP, HSTROPN #### [facility] [address] [address] [address] Chinedu Vitale Globulin (S) [Mass/Vol] 3.3 g/dL Normal [facility] [place] [facility] Comment on above: Performed By: #### L IPA, CMP, HSTROPN #### [facility] [address] [place] [address] Dr. Chiendu Vitale Glucose [Mass/Vol] 144 mg/dL Critically high 74-106 [facility] Comment on above: Performed By: #### L IPA, CMP, HSTROPN #### [facility] [address] [address] [address] Chinedu Vitale Potassium [Moles/Vol] 4.1 mmol/L Normal 3.5-5.1 [facility] [place] [facility] Comment on above: Performed By: #### L IPA, CMP, HSTROPN #### [facility] [address] [place] [address] Dr. Chinedu Vitale Protein [Mass/Vol] 7.2 g/dL Normal 6.4-8.2 [facility] Comment on above: Performed By: #### L IPA, CMP, HSTROPN #### [facility] [address] [address] [address] Chinedu Vitale Sodium [Moles/Vol] 136 mmol/L Normal 136-145 [facility] [place] [facility] Comment on above: Performed By: #### L IPA, CMP, HSTROPN #### [facility] [address] [address] [address] Chinedu Vitale Urea nitrogen [Mass/Vol] 19.0 mg/dL Critically high 7.0-18.0 [facility] [place] [facility] Comment on above: Performed By: #### L IPA, CMP, HSTROPN #### [facility] [address] [address] [address] Chinedu Vitale Urea nitrogen/Creatinine [Mass ratio] 17.0 mg/mg Normal [facility] Comment on above: Performed By: #### L IPA, CMP, HSTROPN #### [facility] [address] [address] [address] Chinedu Vitale TROPONIN, HIGH SENSITIVITYon 12-19-2021 HSTROP 7.1 pg/mL Normal 4.0-76.1 [facility] Comment on above: Result Comment: CUT- OFF POINTS HAVE BEEN ESTABLISHED BASED ON THE FOURTH UNIVERSAL DEFINITIONS OF MYOCARDIAL INFARCTION. THE UPPER REFERENCE LIMIT (URL) OF TROPONIN, DEFINED THE 99TH PERCENTILE OF cTnI DISTRIBUTION IN A REFERENCE POPULATION, HAS BEEN CONFIRMED THE DECISION THRESHOLD FOR [place] DIAGNOSIS. Performed By: #### L IPA, CMP, HSTROPN #### [facility] [address] [address] [address] Chinedu Vitale [facility] CBC AUTO DIFFon 11-27-2021 BASO # 0.1 103/ul Normal 0.0-0.1 [facility] Comment on above: Performed By: #### H FPFCBC ####[facility] [address] [address]Dr. Chinedu Vitale Basophils/100 WBC (Bld) 0.6 % Normal 0.2-2.0 [facility] Comment on above: Performed By: #### H FPFCBC ####[facility] [address] [address]Dr. Chinedu Vitale EO # 0.4 103/ul Normal 0.0-0.7 [facility] Comment on above: Performed By: #### H FPFCBC ####[facility] [address] [place], [place] [address]Dr. Chinedu Vitale Eosinophils/100 WBC (Bld) 3.9 % Normal 0.9-7.0 [facility] Comment on above: Performed By: #### H FPFCBC ####[facility] [address] [place], [place] [address]Dr. Chinedu Vitale Erythrocyte distribution width (RBC) [Ratio] 14.0 % Normal 11.0-15.0 [facility] Comment on above: Performed By: #### H FPFCBC ####[facility] [address] [place], [place] [address]Dr. Chinedu Vitale Hematocrit (Bld) [Volume fraction] 49.6 % Normal 42.0-54.0 [facility] [place] [facility] Comment on above: Performed By: #### H FPFCBC ####[facility] [address] [place], [place] [address]Dr. Chinedu Vitale Hemoglobin (Bld) [Mass/Vol] 15.6 g/dL Normal 14.0-18.0 [facility] Comment on above: Performed By: #### H FPFCBC ####[facility] [address] [place], [place] [address]Dr. Chinedu Vitale IG # 0.02 10e3/ul Normal 0.00-0.03 [facility] Comment on above: Performed By: #### H FPFCBC ####[facility] [address] [place], [place] [address]Dr. Chinedu Vitale IG % 0.2 % Normal 0.0-0.5 [facility] Comment on above: Performed By: #### H FPFCBC ####[facility] [address] [place], [place] [address]Dr. Chinedu Vitale LYMPH # 2.8 103/ul Normal 1.2-3.8 [facility] Comment on above: Performed By: #### H FPFCBC ####[facility] [address] [address]Dr. Antonettemoncho Vitale Lymphocytes/100 WBC (Bld) 30.3 % Normal 20.5-60.0 [facility] Comment on above: Performed By: #### H FPFCBC ####[facility] [address] [address]Dr. Chinedu Vitale MCH (RBC) [Entitic mass] 27.8 pg Normal 25.9-34.0 [facility] Comment on above: Performed By: #### H FPFCBC ####[facility] [address] [place], [place] [address]Dr. Chinedu Vitale MCHC (RBC) [Mass/Vol] 31.5 g/dL Normal 29.9-35.2 [facility] Comment on above: Performed By: #### H FPFCBC ####[facility] [address] [place], [place] [address]Dr. Chinedu Vitale MCV (RBC) [Entitic vol] 88.3 fL Normal 80.0-94.0 [facility] Comment on above: Performed By: #### H FPFCBC ####[facility] [address] [place], [place] [address]Dr. Chinedu Vitale MONO # 0.7 103/ul Normal 0.3-0.8 [facility] Comment on above: Performed By: #### H FPFCBC ####[facility] [address] [place], [place] [address]Dr. Chinedu Vitale Monocytes/100 WBC (Bld) 7.2 % Normal 1.7-12.0 [facility] Comment on above: Performed By: #### H FPFCBC ####[facility] [address] [place], [place] [address]DrBarb Vitale NEUT # 5.3 103/ul Normal 1.4-6.5 [facility] Comment on above: Performed By: #### H FPFCBC ####[facility] [address] [place], [place] [address]DrBarb Vitale Neutrophils/100 WBC (Bld) 57.8 % Normal 43.0-75.0 [facility] [place] [facility] Comment on above: Performed By: #### H FPFCBC ####[facility] [address] [place] [id number]. Chinedu Vitale Platelet mean volume (Bld) [Entitic vol] 11.4 fL Normal 9.5-13.5 [facility] [place] [facility] Comment on above: Performed By: #### H FPFCBC ####[facility] [address] [address]Dr. Chinedu Vitale PLT 261 103/ul Normal 150-450 [facility] [place] [facility] Comment on above: Performed By: #### H FPFCBC ####[facility] [address] [address]DrBarb Vitale RBC 5.62 106/ul Normal 4.70-6.10 [facility] Comment on above: Performed By: #### H FPFCBC ####[facility] [address] [address]DrBarb Vitale WBC 9.1 103/ul Normal 4.0-11.0 [facility] [place] [facility] Comment on above: Performed By: #### H FPFCBC ####[facility] [address] [address]DrBarb Vitale [employer] PROFILE (MALE)on 11-27-2021 Albumin [Mass/Vol] 4.1 g/dL Normal 3.4-5.0 [facility] Comment on above: Performed By: #### H FPFM #### [facility] [address] [address] [address] Chinedu Vitale Albumin/Globulin [Mass ratio] 1.2 {ratio} Normal [facility] [place] [facility] Comment on above: Performed By: #### H FPFM #### [facility] [address] [address] [address] Chinedu Vitale ALP [Catalytic activity/Vol] 89 U/L Normal 46-116 [facility] [place] [facility] Comment on above: Performed By: #### H FPFM #### [facility] [address] [address] [address] Chinedu Vitale ALT [Catalytic activity/Vol] 22 U/L Normal 16-63 [facility] [place] [facility] Comment on above: Performed By: #### H FPFM #### [facility] [address] [address] [address] Chinedu Vitale AST [Catalytic activity/Vol] 15 U/L Normal 15-37 [facility] [place] [facility] Comment on above: Performed By: #### H FPFM #### [facility] [address] [address] [address] Chinedu Vitale Bilirubin [Mass/Vol] 0.5 mg/dL Normal 0.2-1.0 [facility] [place] [facility] Comment on above: Performed By: #### H FPFM #### [facility] [address] [place] [address] Dr. Chinedu Vitale Calcium [Mass/Vol] 9.1 mg/dL Normal 8.5-10.1 [facility] Comment on above: Performed By: #### H FPFM #### [facility] [address] [place] [address] Dr. Chinedu Vitale Chloride [Moles/Vol] 102 mmol/L Normal 98-107 [facility] [place] [facility] Comment on above: Performed By: #### H FPFM #### [facility] [address] [place] [address] Dr. Chinedu Vitale CHOL-HDL RATIO NORM SEE BELOW Normal [facility] Comment on above: Result Comment: 3.3 - 4.4 LOW RISK 4.4 - 7.1 AVERAGE RISK 7.1 - 11.0 MODERATE RISK >11.0 HIGH RISK Performed By: #### H FPFM #### [facility] [address] [place] [address] Dr. Chinedu Vitale Cholesterol [Mass/Vol] 208 mg/dL Critically high <=200 [facility] [place] Comment on above: Performed By: #### H FPFM #### [facility] [address] [place] [address] Dr. Chinedu Vitale Cholesterol in HDL [Mass/Vol] 41 mg/dL Normal 40-60 [facility] [place] Comment on above: Performed By: #### H FPFM #### [facility] [address] [address] [address] Chinedu Vitale Cholesterol in LDL [Mass/Vol] 136.4 mg/dL Normal [facility] [place] Comment on above: Performed By: #### H FPFM #### [facility] [address] [address] [address] Chinedu Vitale Cholesterol.total/Ch olesterol in HDL [Mass ratio] 5.1 {ratio} Normal [facility] [place] Comment on above: Performed By: #### H FPFM #### [facility] [address] [address] [address] Chinedu Vitale CO2 [Moles/Vol] 29.8 mmol/L Normal 21.0-32.0 [facility] Comment on above: Performed By: #### H FPFM #### [facility] [address] [address] [address] Chinedu Vitale Creatinine [Mass/Vol] 1.21 mg/dL Normal 0.70-1.30 [facility] [place] Comment on above: Performed By: #### H FPFM #### [facility] [address] [address] [address] Chinedu Vitale Globulin (S) [Mass/Vol] 3.5 g/dL Normal [facility] [place] Comment on above: Performed By: #### H FPFM #### [facility] [address] [address] [address] Chinedu Vitale Glucose [Mass/Vol] 100 mg/dL Normal 74-106 [facility] Comment on above: Performed By: #### H FPFM #### [facility] [address] [address] [address] Chinedu Vitale HDL NORMAL > or = 60 mg/dl - LO W CARDIOVASCULAR RISK <40 mg/dl - HIGH CARDIOVASCULAR RISK Normal [facility] [place] Comment on above: Performed By: #### H FPFM #### [facility] [address] [address] [address] Chinedu Vitale LDL CALC NORMAL SEE BELOW Normal [facility] Comment on above: Result Comment: <100 mg/dl OPTIMAL 100 - 129 mg/dl NEAR OR ABOVE OPTIMAL 130 - 159 mg/dl BORDERLINE HIGH 160 - 189 mg/dl HIGH >190 mg/dl VERY HIGH Performed By: #### H FPFM #### [facility] [address] [address] [address] Chinedu Vitale Potassium [Moles/Vol] 4.4 mmol/L Normal 3.5-5.1 [facility] [place] Comment on above: Performed By: #### H FPFM #### [facility] [address] [address] [address] Chinedu Vitale Protein [Mass/Vol] 7.6 g/dL Normal 6.4-8.2 [facility] Comment on above: Performed By: #### H FPFM #### [facility] [address] [place] [address] Dr. Chinedu Vitale Sodium [Moles/Vol] 139 mmol/L Normal 136-145 [facility] Comment on above: Performed By: #### H FPFM #### [facility] [address] [place] [address] Dr. Chinedu Vitale Triglyceride [Mass/Vol] 153 mg/dL Critically high <=150 [facility] [place] Comment on above: Performed By: #### H FPFM #### [facility] [address] [place] [address] Dr. Chinedu Vitale TSH 2.694 uIU/mL Normal 0.358-3.740 [facility] Comment on above: Performed By: #### H FPFM #### [facility] [address] [address] [address] Chinedu Vitale Urea nitrogen [Mass/Vol] 20.0 mg/dL Critically high 7.0-18.0 [facility] [place] Comment on above: Performed By: #### H FPFM #### [facility] [address] [place] [address] Dr. Chinedu Vitale Urea nitrogen/Creatinine [Mass ratio] 16.5 mg/mg Normal [facility] [place] Comment on above: Performed By: #### H FPFM #### [facility] [address] [address] [address] Chinedu Vitale VLDL CALC 30.6 mg/dL Normal [facility] Comment on above: Performed By: #### H [facility] #### [facility] [address] [address] [address] Chinedu Vitale Encounters Encounter Date Encounter Type Care Provider Facility Start: 02-18-2022 End: 02-19-2022 ambulatory Macy MONTES DE OCA Facility:[facility] Start: 02-18-2022 End: 02-18-2022 Patient encounter procedure Macy MONTES DE OCA [facility] [place] Start: 02-11-2022 End: 02-12-[address] MACY MONTES DE OCA Facility:[facility] Start: 02-09-2022 Encounter for genera l adult medical examination without abnormal findings DR JAIRO GERONIMO [facility] [place] Start: 02-09-2022 Encounter for preprocedural laboratory examination DR JAIRO GERONIMO [facility] [place] Start: 02-08-2022 Encounter for preprocedural laboratory examination DR MACY MONTES DE OCA [facility] [place] Start: 02-05-2022 End: 02-06-2022 Encounter for general adult medical examination without abnormal findings DR JAIRO GERONIMO Facility:[facility] Start: 02-05-2022 End: 02-06-[address] JAIRO GERONIMO Facility:[facility] Start: 02-05-2022 End: 02-06-2022 Encounter for preprocedural laboratory examination DR MACY MONTES DE OCA Facility:[facility] Start: 01-28-2022 End: [address] MACY MONTES DE OCA Facility:[facility] Start: 01-06-2022 End: 01-07-2022 ambulatory Macy MONTES DE OCA Facility:[facility] Start: 12-22-2021 ambulatory Macy MONTES DE OCA Facility :[facility] Start: 12-19-2021 End: 12-19-[address] JAIRO GERONIMO Facility:[facility] Start: 11-27-2021 End: 11-28-[address] JAIRO GERONIMO Facility:[facility] Procedures Date Procedure Procedure Detail Performing Clinician Start: 02-05-[address] MARY BETH MONTES DE OCA Comment on above: Performed By: #### P [facility] #### [facility] [id number] Chinedu Vitale Start: 11-27-[address] MARY BETH MONTES [facility] Comment on above: Performed By: #### [facility] #### [facility] [address] [place], [place] [address] Dr. Chinedu Vitale Decompression of [facility] spine Macy MONTES DE OCA Immunizations Immunization Date Immunization Notes Care Provider Fa cility NEGATED: Highlighted row has not occurred!01-06-2022 influenza virus vaccine, unspecified formulation Macy MONTES DE OCA [facility] [place] Payers Date Payer Category Payer Unknown [id number] 2.16.84 [id number] 1960 Unknown [id number] 2.16.84 [id number] 1961 Unknown [id number] 2.16.84 [id number] 1961 Unknown [id number] 2.16.84 [id number] 1961 Unknown [id number] 2.16.84 [id number] 1961 Unknown [id number] 2.16.8 [id number] 1961 Unknown [id number] 2.16.8 [id number] 1961 Unknown [id number] 2.16.8 [id number] 1961 Unknown [id number] 2.16.8 [id number] 1959 Self-pay [id number] 1958 Unknown [id number] Unknown [id number] 2.16.84 [id number] Social History Date Type Detail Facility Start: 01-06-2022 Tobacco smoking status Never s moked tobacco (finding) [facility] Tobacco smoking status Never [facility] [place] Sex Assigned At Male [facility] Discharge instructions 02-12-2022 Note Date & Type Note Facility 02-12-2022 Hospital Discharg e instructions Follow Up Care 02/12/2022 09:22:18 With:DARIUS MATTA, CHIDI Jc Address: [address] [place] [address] When: only if needed [facility] [place] Clinical Note 02-11-2022 Note Date & Type [...] good condition. CC: Jairo Geronimo M.D. [facility] Clinical Note 01-12-2022 Note Date & Type Note Facility 01-12-2022 Note Chief Complaint consultation for cholelithiasis HPI Staff 61 year old male presents on consultation from Dr. Geronimo for cholelithiasis. Presented to [facility] ED 12/18 with epigastric pain and nausea. [...] vaccine, inactivated - Not Given Patient Refuses [facility] Comment on above: Result Comment: Elec tronically Signed By: DARIUS MATTA, Macy Jeffery\Date and Time Signed: 01/12/22 17:03 EDT Evaluation + Plan note Note Date & Type Note Facility Evaluation + Plan note No data available for this section [facility] Progress note Note Date & Type Note Facility Progress note No data available for this section [facility] [place] Summary Purpose Family History No Family History Records FoundNo Family History Records Found Advance Directives No Advanced Directives Records FoundNo Advanced Directives Records Found Additional Source Comments (unrecognized sect ion and content) No Status Records FoundNo Status Records Found INFORMATION SOURCE (unrecogn ized section and content) DATE CREATED AUTHOR 02/17/2022 [facility] DATE CREATED AUTHOR AUTHOR'S ORGANIZ ATION 02/23/2022 [facility] Patient Care team informatio n (unrecognized section and content) Personnel Name: Jairo Geronimo MD Address: Address: [address] [place] [address] FOR RECORDS PERTAINING TO PATIENTS WHO ARE [...] BE BASED ON THE PRIMARY CLINICAL RECORDS. [employer] [facility]. provides no warranty or guarantee of the accuracy or completeness of information in this document.
== END 2024-12-27 08:56 | disposition home or self-care (01) ==
LOC: US 08:56
PROVIDERS: PCP Family Medicine; Visit Provider Family Medicine
DX: K76.0 Fatty (change of) liver, not elsewhere classified (principal); E78.00 Pure hypercholesterolemia, unspecified
CPT/HCPCS: 76700